=== PATIENT | female | born 1950 | race Caucasian/White ===

== ENCOUNTER → 2024-07-26 07:59 | Outpatient (REF) | payer MEDICARE, SELFPAY | LOC: MRI 07:59 | PROVIDERS: ATTENDING PHYSICIAN Student in an Organized Health Care Education/Training Program; REFERRING PHYSICIAN Pain Medicine Interventional Pain Medicine | DX: M54.31 Sciatica, right side (principal); R15.9 Full incontinence of feces | CPT/HCPCS: 72158; A9575 ==

== ENCOUNTER 2024-08-22 04:59 | Emergency (ER) | payer MEDICARE, SELFPAY ==
[2024-08-22 05:07] VITALS: BP 129/56
[2024-08-22] MEDS: NORCO 5/325 2 TABLET PO (07:44)
--- NOTE | 2024-08-22 08:22 | ED.GENMED ---
History of Present Illness
General
Chief Complaint: Musculo-Skeletal Complaint
Source: patient and spouse
Time Seen by Provider: 08/22/24 06:02
History of Present Illness
History of Present Illness:
74-year-old female who presents with persistent pain down her left leg. She also states this morning she had pain into her right buttocks. She has tingling in her feet. Patient has known history of spinal canal stenosis and has been seeing pain
management. She had no recent MRI. The patient admits that she has no real pain while laying in bed A lot of pain. Today pain came on while in bed and woke her up. She is scheduled to see a new pain management doctor on Saturday. She was
hoping for new procedure. The patient does state that the patient's provider was concerned about cauda equina syndrome recently and had an MRI performed that did not show cauda equina.
Past History
Past History
ED Past Medical History: Other (Parkinson's disease, cataracts, spinal canal stenosis, sciatica)
Social History
Tobacco: Non-smoker
Alcohol: None
Drug: None
Living: with family
Phy Exam
Physical Exam
Physical Exam:
CONSTITUTIONAL Patient alert and oriented to person, place and time. Well-appearing. Vital signs reviewed.
HEAD atraumatic, normocephalic.
EYES eyelids normal to inspection, Extraocular muscles intact, Conjunctiva normal, Sclera normal.
NECK normal range of motion, Trachea midline, no jugular venous distention.
RESPIRATORY CHEST No respiratory distress noted, Chest expansion equal
BACK normal inspection, no obvious deformities, negative straight leg raise bilaterally.
UPPER EXTREMITY range of motion normal, Motor strength normal, no cyanosis, no edema.
LOWER EXTREMITY range of motion normal, Motor strength normal, no cyanosis, no edema. Normal bilateral dorsalis pedis pulses
NEURO Speech normal, No focal motor deficits, Selina coma scale 15, Memory normal, Cranial Nerves intact to screening exam.
SKIN skin warm, dry, and normal in color.
Course
Orders/Labs/Results
Orders:
Orders
08/22/24 07:02
Hydrocodone 5/APAP 325 [Dixon 5/325] 2 tablet PO NOW STA
08/22/24 08:23
Prednisone [Deltasone] 50 mg PO NOW STA
Vital Signs
Initial and Last Documented VS:
Initial Vital Signs
Temp Pulse Resp BP Pulse Ox
98.8 F 94 26 129/56 96
08/22/24 05:07 08/22/24 05:07 08/22/24 05:07 08/22/24 05:07 08/22/24 05:07
Last Documented Vital Signs
Temp Pulse Resp BP Pulse Ox
98.8 F 79 16 129/79 96
08/22/24 05:07 08/22/24 08:30 08/22/24 08:30 08/22/24 08:30 08/22/24 08:30
MDM/Problems Addressed
MDM/Problems Addressed:
Spinal canal stenosis, sciatica
*Pulse Oximetry
Patient hypoxic: no
*Critical Care Note
Total Time (30-74mins, 75-104mins- exclusive of procedures): Not Applicable
Data Reviewed
Source: patient and spouse
Patient Management
Escalation/DeEscalation of care consider admission/obs:
74-year-old female who presents with persistent pain down her leg. She is scheduled see pain management again on Saturday. She was on oxycodone but only took 3 doses. Will trial hydrocodone to see if there is better improvement. I see no
evidence of cauda equina syndrome. The patient actually states she feels fine in bed. She does have more pain when she tries to walk. The patient has an open house for selling her house today and they do need to get home. Patient was given dose
of hydrocodone does not double. In addition, will trial course of steroids to see if that can be of any improvement for her.
ED Attending Note
-
Portions of this chart may have been created with voice recognition software.� Occasional wrong word or��sound alike� substitutions may have occurred due to the inherent limitations of voice recognition software.
Discharge Plan
Departure
Patient Disposition: Home (Routine Discharge)
Date of Disposition: 08/22/24
Time of Disposition: 08:23
Patient with high blood pressure during this ER visit?: No
Discharge Problem:
Spinal stenosis, Sciatica
Instructions: Sciatica (DC), Radiculopathy (DC)
Prescriptions:
New
hydrocodone-acetaminophen 5-325 mg tablet
2 tab PO Q6H PRN (Reason: Pain) Qty: 20 0RF
prednisone 10 mg Tablet
See Rx Instructions .ROUTE .COMPLEX Qty: 45 0RF
Rx Instructions:
Take By Mouth:
50 mg daily x3 days, 40 mg daily x3 days,
30 mg daily x3 days, 20 mg daily x3 days,
10 mg daily x3 days
Referrals:
Carol Redding MD [Family Provider] -
Activity Restrictions/Additional Instructions:
Please see pain management as planned on Saturday. Return immediately for bowel or bladder incontinence, motor weakness of the legs, fevers or any other concerns.
Interventions
Interventions:
*Risk Screen - Suicide Last Done: 08/22/24 05:07
*General Assessment Last Done: 08/22/24 05:12
*Neglect/Abuse Screening Last Done: 08/22/24 05:30
ED- Fall Risk Assessment Last Done: 08/22/24 05:36
*ED COVID-19 Vaccine History Last Done: 08/22/24 05:27
*Nursing Disposition Last Done: 08/22/24 08:57
ED-Musculoskeletal Assessment Last Done: 08/22/24 05:30
Discharge Date and Time
Print Language: ETHIOPIAN
[2024-08-22 08:30] VITALS: BP 129/79
[2024-08-22] MEDS: DELTASONE 50 MG PO (08:38)
== END 2024-08-22 10:07 | disposition home or self-care (01) ==
LOC: EMR 04:59
PROVIDERS: EMERGENCY PHYSICIAN Emergency Medicine; FAMILY PHYSICIAN Student in an Organized Health Care Education/Training Program
DX: M48.00 Spinal stenosis, site unspecified (principal); M54.42 Lumbago with sciatica, left side; R20.2 Paresthesia of skin; M79.605 Pain in left leg; G20.A1 Parkinson's disease without dyskinesia, without mention of fluctuations
CPT/HCPCS: 99283

== ENCOUNTER → 2024-09-01 13:36 | Outpatient (REF) | payer MEDICARE, SELFPAY | LOC: RAD 13:36 | PROVIDERS: ATTENDING PHYSICIAN Orthopaedic Surgery Orthopaedic Surgery of the Spine; FAMILY PHYSICIAN Student in an Organized Health Care Education/Training Program | DX: R29.818 Other symptoms and signs involving the nervous system (principal) | CPT/HCPCS: 72082; 72131 ==

== ENCOUNTER 2024-10-27 07:26 | Inpatient (IN) | payer MEDICARE, SELFPAY ==
[2024-10-27] VITALS (19 sets, daily range): BP systolic 76–176; BP diastolic 48–102; BMI 20.7; BMI 19.3
[2024-10-27] MEDS: DUONEB 3 ML INH (04:46)
[2024-10-27 04:52] LABS: % Basophils 0.5 % (0-2); % Eosinophils 1.6 % (0-6); % Immature Granulocytes 0.5 % (0-0.5); % Lymphocytes 8.3 % (20.5-51.1); % Monocytes 6.6 % (1.7-9.3); % Neutrophils 82.5 % (42.2-75.2); Absolute Basophils 0.1 10^3/uL (0-0.2); Absolute Eosinophils 0.2 10^3/uL (0-0.7); Absolute Immature Granulocytes 0.1 10^3/uL (0-0.05); Absolute Lymphocytes 0.9 10^3/uL (1.2-3.4); Absolute Monocytes 0.7 10^3/uL (0.1-0.6); Absolute Neutrophils 8.6 10^3/uL (1.4-6.5); Hematocrit 36.6 % (37.0-47.0); Hemoglobin 12.1 g/dL (12.0-16.0); Mean Corp Hgb Conc. 33.1 g/dL (33.0-37.0); Mean Corpuscular Volume 96.8 fL (81.0-99.0); Mean Platelet Volume 9.9 fL (7.4-10.4); Nucleated Red Blood Cells % 0 %; Platelet Count 303 10^3/uL (130-400); Red Blood Cell Count 3.78 10^6/uL (4.20-5.40); Red Cell Dist. Width 12.9 % (11.5-14.5); White Blood Cell Count 10.4 10^3/uL (4.8-10.8)
--- NOTE | 2024-10-27 04:56 | ED.GENMED ---
History of Present Illness
General
Chief Complaint: Breathing Problem
Source: patient, family and ambulance crew
Exam Limitations: none
Time Seen by Provider: 10/27/24 04:29
Nursing documentation reviewed up to this point in time: agreed with
History of Present Illness
History of Present Illness:
74-year-old female PAF on Eliquis, has been a rehab facility for about 6 weeks after lumbar spine surgery [facility], subacute onset of cough congestion lower extremity edema had Dopplers unsure of the results, came more short of breath
tonight, low pulse ox, no nausea or vomiting no fevers no hemoptysis has had lower extremity edema has PAF, scheduled to see Dr. Ferguson has not seen him yet
Past History
Past History
ED Past Medical History: Arrthythmia and Other (Parkinson's disease, cataracts, spinal canal stenosis, sciatica)
ED Past Surgical History: None
Social History
Tobacco: Non-smoker
Alcohol: None
Drug: None
Personal:
Living: with family
Employment: Retired
Review of Systems
Review of Systems
All Other Systems: Not applicable
Constitutional: Denies fever or fatigue
Respiratory: Reports cough and trouble breathing
Cardiac: Denies chest pain, palpitations or syncope
ABD/GI: Reports no symptoms
: Reports no symptoms
Musculoskeletal: Reports no symptoms
Skin: Reports no symptoms
Neurological: Reports no symptoms
Endocrine: Reports no symptoms
Hematologic/Lymphatic: Reports no symptoms
Psychiatric: Reports no symptoms
Phy Exam
Physical Exam
Physical Exam:
Physical Exam
General: 74-year-old female moderate respiratory distress cough
Neck: No jaundice
Heart: Tachycardic
Lungs: Diminished breath sounds with crackles wheeze
Abdomen: Not
Neuro: alert and oriented. no focal neurological deficits
Skin: no rash
Psychiatric: cooperative
Extremities: Pitting edema is present
Scores
Heart Failure Risk
Heart Failure Risk Score: Yes
History of Stroke or TIA: No
History of intubation for respiratory distress: No
Heart rate on ED arrival >/= 110: Yes
SaO2 <90% on arrival on room air: Yes
HR >/=110 during 3min walk test (or too ill to perform test): Yes
ECG has acute ischemic changes: No
Urea >/=12mmol/L (BUN 33.6mg/dL): No
Serum CO2>/=35mmol/L: No
Troponin I or T elevated to VA Level (0.4mg/dL): No
NT-proBNP >/=5,000ng/L (5,000pg/ml): No
HF Risk Score: 3
Admission Status: HIGH RISK 15.9% Consider SNF treatment or admission to hospital
Course
Orders/Labs/Results
Orders:
Orders
10/27/24 04:37
Ipratropium/Albuterol Sulfate [Duoneb] 3 ml .ROUTE .STK-MED ONE
10/27/24 04:38
Electrocardiogram (*1) Stat
Reason for Study: Other
Other Reason for Exam: pneumonia
Cardiac Monitoring- Treatment ONCE
EKG- Treatment ONCE
Ipratropium/Albuterol Sulfate [Duoneb] 3 ml INH R NOW STA
CR Chest Portable - 1 View Urgent
Comment:
Reason For Exam: sob
Reason Study Needs to be Portable: Unable to Transport
10/27/24 04:43
Complete Blood Count/With Diff Urgent
NT-proBNP Urgent
Troponin I Urgent
10/27/24 04:46
Arterial Blood Gas Urgent
%Oxygen/Room Air: 2
10/27/24 05:00
Furosemide [Lasix] 60 mg IV NOW STA
10/27/24 05:02
Morphine Sulfate 2 mg IV NOW STA
10/27/24 05:15
Diltiazem 125 mg/125 ml Nss [Cardizem] 125 mg in 125 ml IV PER PROTOCOL
Initial dose in mg/hr, then titrate:: 5
Titrate to keep:: Heart rate 80-100 bpm
Titrate by mg/hr:: 5 mg/hr
Frequency of titrations (minutes):: 15
Maximum dose in mg/hr:: 15
10/27/24 05:17
Diltiazem 125 mg/125 ml Nss [Cardizem] 125 mg in 125 ml IV PER PROTOCOL
Initial dose in mg/hr, then titrate:: 5
Titrate to keep:: Heart rate 80-100 bpm
Titrate by mg/hr:: 5 mg/hr
Frequency of titrations (minutes):: 15
Maximum dose in mg/hr:: 15
10/27/24 05:18
Diltiazem 125 mg/125 ml Nss [Cardizem] 125 mg in 125 ml IV NOW
Currently infusing. Continue current dose and titrate:: Yes
Titrate to keep:: Heart rate 80-100 bpm
Titrate by mg/hr:: 5 mg/hr
Frequency of titrations (minutes):: 15
Maximum dose in mg/hr:: 15
10/27/24 05:21
Comprehensive Metabolic Panel Urgent
Abnormal Lab Results
10/27/24 10/27/24
04:43 04:46
RBC 3.78 L 10^6/uL
(4.20-5.40)
Hct 36.6 L %
(37.0-47.0)
MCH 32.0 H pg
(27.0-31.0)
Abs Immat Gran (auto) 0.1 H 10^3/uL
(0-0.05)
Absolute Neuts (auto) 8.6 H 10^3/uL
(1.4-6.5)
Absolute Lymphs (auto) 0.9 L 10^3/uL
(1.2-3.4)
Absolute Monos (auto) 0.7 H 10^3/uL
(0.1-0.6)
Neutrophils % 82.5 H %
(42.2-75.2)
Lymphocytes % 8.3 L %
(20.5-51.1)
pCO2 38 H mmHg
(32-35)
ABG O2 Sat (Measured) 98.8 H %
(94-98)
10/27/24 04:43
Vital Signs
Initial and Last Documented VS:
Initial Vital Signs
Temp Pulse Resp BP Pulse Ox
98.0 F 128 30 166/99 94
10/27/24 04:33 10/27/24 04:33 10/27/24 04:33 10/27/24 04:33 10/27/24 04:33
Last Documented Vital Signs
Temp Pulse Resp BP Pulse Ox
98.0 F 147 28 176/92 97
10/27/24 04:33 10/27/24 05:22 10/27/24 04:45 10/27/24 05:22 10/27/24 04:51
MDM/Problems Addressed
Differential Diagnosis Includes:
Bronchitis pneumonia heart failure less likely PE or pneumothorax
MDM/Problems Addressed:
Cough shortness of breath upon
Chronic conditions affecting care:
PAF lumbar radiculopathy lumbar surgery
Acute Exacerbation and/or Progression of Chronic Illness:
PAF lumbar surgery
*Radiology
Radiology exam reviewed: preliminary read by ED provider
*Pulse Oximetry
Patient hypoxic: yes
*EKG
Interpreted by ED Provider?: Yes
Interpretation: abnormal
Comparison EKG: no comparison EKG present
Heart Rate: 128
Rate: tachycardiac
Rhythm: a-fib
Ischemia: non-specific ST changes
*Crew Boss Interpretation
Rate: tachycardiac
Interpretation: abnormal
Heart Rate: 138
Rhythm: sinus and atrial flutter
*Critical Care Note
Total Time (30-74mins, 75-104mins- exclusive of procedures): 30
Data Reviewed
Source: patient and spouse
Prescriptions/Medications Considered But Not Given:
Unfractionated
Further Testing Considered But Not Given:
CT of the chest
Update Note
Update Note:
Update, chest x-ray noted looks like heart failure effusions, proBNP noted, will diurese start on rate control supplemental oxygen ABG will require admission
CRITICAL CARE STATEMENT: A total of 30minutes of critical care time was provided for this patient. This includes management of unstable vital signs, evaluation of the patient at bedside, reviewing the patient's pertinent medical records discussion
with EMS providers and patient's family in addition to discussion with consultants, review of old EKGs and review of pertinent medical records. This time with separate from time utilized to perform the aforementioned documented procedures
ED Attending Note
-
Portions of this chart may have been created with voice recognition software.� Occasional wrong word or��sound alike� substitutions may have occurred due to the inherent limitations of voice recognition software.
Discharge Plan
Departure
Patient Disposition: Admit
Date of Disposition: 10/27/24
Time of Disposition: 05:47
Admit to: Telemetry
Presentation/result/management discussed w/ accepting MD/DO: Hospitalist
Patient with high blood pressure during this ER visit?: Yes
Condition: Fair
Covid-19: Not Applicable
Discharge Problem:
Atrial flutter with rapid ventricular response, Hypoxia, Congestive heart failure (CHF)
Prescriptions:
No Action
hydrocodone-acetaminophen 5-325 mg tablet
2 tab PO Q6H PRN (Reason: Pain) Qty: 20 0RF
prednisone 10 mg Tablet
See Rx Instructions .ROUTE .COMPLEX Qty: 45 0RF
Rx Instructions:
Take By Mouth:
50 mg daily x3 days, 40 mg daily x3 days,
30 mg daily x3 days, 20 mg daily x3 days,
10 mg daily x3 days
Referrals:
Carol Redding MD [Family Provider] -
Interventions
Interventions:
*Risk Screen - Suicide Last Done: 10/27/24 04:33
*General Assessment Last Done: 10/27/24 04:33
*Neglect/Abuse Screening Last Done: 10/27/24 04:33
ED- Fall Risk Assessment Last Done: 10/27/24 04:51
*ED COVID-19 Vaccine History Last Done: 10/27/24 04:50
ED- Cardiac Assessment Last Done: 10/27/24 04:51
ED- Pulmonary Assessment Last Done: 10/27/24 04:51
Discharge Date and Time
Print Language: TURKISH
[2024-10-27 05:00] LABS: B.E. 0.9 mmol/L; HCO3 25.2 mmol/L (21-28); O2 Saturation % 98.8 % (94-98); PCO2 38 mmHg (32-35); PO2 89 mmHg (83-108); pH 7.43 (7.35-7.45)
[2024-10-27 05:02] LABS: O2 Therapy 2
[2024-10-27] MEDS: MORPHINE SULFATE 2 MG IV (05:20)
[2024-10-27] MEDS: LASIX 60 MG IV (05:22)
[2024-10-27 05:24] LABS: NT-proBNP 2230 pg/ml; Troponin I < 0.012 ng/ml
[2024-10-27] MEDS: CARDIZEM 125 IV ×2 (05:24→14:59)
[2024-10-27 07:00] LABS: ALT (SGPT) 13 U/L (0-35); AST (SGOT) 36 U/L (14-36); Albumin 3.5 g/dl (3.5-5.0); Alkaline Phosphatase 117 U/L (38-126); Blood Urea Nitrogen 17 mg/dl (7-17); Calcium 8.7 mg/dl (8.4-10.2); Carbon Dioxide 27 mmol/L (22-30); Chloride 102 mmol/L (98-107); Estimated Creatinine Clearance 66 ml/min; Glucose 129 mg/dl (70-99); Potassium 3.6 mmol/L (3.5-5.1); Sodium 134 mmol/L (135-145); Total Bilirubin 0.5 mg/dl (0.2-1.3); Total Protein 6.2 g/dl (6.3-8.2); eGFR > 60.00
--- NOTE | 2024-10-27 07:15 | HPS.HSE ---
Family Physician
-
Family Physician: Carol Redding MD
Chief Complaint
-
Shortness of breath and chest tightness
History of Present Illness
This is a 74-year-old female with past medical history of Parkinson's disease, A-fib and spinal stenosis status post recent spine surgery who presents to the emergency department with shortness of breath and tachycardia.
Patient and spouse report that the symptoms began after discharge from rehab. She reported that she has had swelling of her lower extremities bilaterally at rehab. However she had no shortness of breath or any other symptoms until arrival at home.
About 2 days ago she started having shortness of breath and a nonproductive cough. She was wheezing and spouse noted increased work of breathing. She had some chest tightness. He started noticing that she had severe dyspnea when laying down and
was propping her up. He was monitoring heart rate in order to give her on metoprolol for atrial fibrillation and noticed that her heart rate was in the 150s. Symptoms became very severe today so she decided to bring her to the emergency
department. She denies feeling dizzy or lightheaded. She denies any nausea or vomiting. She has not had any fevers or chills. They denied any recent sick contacts.
Patient reported that over 3 weeks ago she had preoperative evaluation for a spinal surgery. At that time she was found to have asymptomatic atrial fibrillation on EKG and was started on metoprolol and apixaban. She had an echocardiogram which
showed moderate to severe mitral regurg. She was pending follow-up with cardiology in about 1 month. She has no prior history of CHF. She has no prior history of CAD. She has no stents.
In the emergency department she was afebrile, hypertensive to 170 systolic. She was tachycardic to 140s. ECG shows atrial flutter at rate of 147. No acute ischemic changes. Troponin was normal at 0.012. BNP was elevated at 2230. CBC was
unremarkable. Chemistries were also unremarkable. LFTs within normal limits. Chest x-ray shows bilateral infiltrates and cephalization c/w flash pulmonary edema.
Medical History
Past Medical History
Past Medical History: Reports Arrhythmia (Atrial fibrillation) and Other
Additional Past Medical History:
Parkinson's disease
Spinal stenosis
Past Surgical History: Reports Orthopedic (Lumbar spine surgery with a kendy and placement)
Social History
Tobacco: Non-smoker
Alcohol: None
Drug: None
Personal:
Living: With Family
Employment: Retired
Family History
Family History: Not pertinent
Allergies / Home Medications
Allergies reflects when Allergies were last updated in [facility].
Home Medications with original date entered in [facility]
Allergy/Medication List:
Allergies
Allergy/AdvReac Type Severity Reaction Status Date / Time
No Known Allergies Allergy Verified 10/27/24 04:33
Home Medications
acetaminophen 325 mg tablet 650 mg PO Q4H PRN mild pain 10/27/24
apixaban 5 mg tablet (Eliquis) 5 mg PO BID 10/27/24
carbidopa 25 mg-levodopa 100 mg tablet 2 tab PO QID 10/27/24
carbidopa ER 25 mg-levodopa 100 mg tablet,extended release 1 tab PO HS 10/27/24
cyclosporine 0.05 % eye drops in a dropperette (Restasis) 1 drp ophthalmic (eye) Q12H 10/27/24
melatonin 10 mg tablet 10 mg PO HS PRN sleep 10/27/24
metoprolol succinate 25 mg PO DAILY 10/27/24
multivitamin 1 tab PO DAILY 10/27/24
polyethylene glycol 3350 17 gram/dose oral powder (Miralax) 4 g PO DAILY PRN constipation 10/27/24
rasagiline 1 mg tablet (Azilect) 1 mg PO 4-8XD 10/27/24
turmeric 400 mg capsule 400 mg PO BID 10/27/24
vitamin B complex 1 tab PO DAILY 10/27/24
zinc 100 mg tablet 220 mg PO DAILY 10/27/24
Review of Systems
-
History Source: Patient
Constitutional: Reports No Symptoms
EENT: Reports No Symptoms
Respiratory: Reports Cough and Trouble Breathing
Cardiac: Reports Chest Pain
Abdomen/GI: Reports No Symptoms
: Reports No Symptoms
Musculoskeletal: Reports Edema
Skin: Reports No Symptoms
Neurological: Reports No Symptoms
Endocrine: Reports No Symptoms
Hematologic/Lymphatic: Reports No Symptoms
Psych: Reports No Symptoms
Physical Exam
Vital Signs
Vital Signs
Temp Pulse Resp BP Pulse Ox
98.0 F 147 28 176/92 97
10/27/24 04:33 10/27/24 05:22 10/27/24 04:45 10/27/24 05:22 10/27/24 04:51
Physical Exam
General: Respiratory Distress
HEENT: NormoCephalic, Anicteric, Moist mucous membranes and Atraumatic
Respiratory: Crackles and Accessory Resp Muscle Use
Cardiac: S1/S2, Irregular Rhythm and Tachycardia
Breast: Deferred by me
GI: Soft, Non Tender, Non Distended and Normal Bowel Sounds
Rectal: Deferred by Provider
Genito-urinary: Deferred by me
Musculoskeletal: No Clubbing, No Cyanosis, Edema, Left Lower Extremity and Edema, Right Lower Extremity
Skin: Warm
Neuro: AO x 3
Hematologic/Lymphatic: No Lymphadenopathy
Psych: Calm
Laboratory Results
-
10/27/24 04:43
10/27/24 06:25
Laboratory Results
pH 7.43 (7.35-7.45) 10/27/24 04:46
pCO2 38 mmHg (32-35) H 10/27/24 04:46
pO2 89 mmHg (83-108) 10/27/24 04:46
HCO3 25.2 mmol/L (21-28) 10/27/24 04:46
Total Bilirubin 0.5 mg/dl (0.2-1.3) 10/27/24 06:25
AST 36 U/L (14-36) 10/27/24 06:25
ALT 13 U/L (0-35) 10/27/24 06:25
Alkaline Phosphatase 117 U/L (38-126) 10/27/24 06:25
Troponin I < 0.012 ng/ml 10/27/24 04:43
Data Reviewed
-
Diagnostic Radiology: Image Personally Visualized and interpreted
Medical Tests (Nuc Med, Echo, EKG etc): Image Personally Visualized and interpreted
Lab Data: Labs Reviewed by me
Old Records: Reviewed
Impression/Plan
-
IMPRESSION:
Patient with history of atrial fibrillation recently diagnosis during preoperative evaluation for spinal surgery presents to the emergency department with approximately 1 to 2 days of increasing dyspnea on exertion then rapid development of
shortness of breath and orthopnea with tachycardia to the 150s at home, brought to ED with oxygen requirement of 2 to 4 L, pulmonary edema on x-ray, crackles on exam with about 1+ bilateral lower extremity edema. And known to have mitral
regurgitation on recent outside echocardiogram. No signs of acute infectious process. Suspect A-fib RVR in the setting of mitral regurg resulting in flash pulmonary edema. Unknown if underlying CHF however was not placed on lasix at rehab though
she had complained of bilateral leg swelling.
PLAN:
1. CHF - New onset CHF suspected in the setting of aflutter/fib RVR. Known mitral insufficiency.
- admit to ivu
- rate control as below
- start on diuretics 60mg iv in ED, will continue 40 iv q 12
- echocardiogram
- daily weights and i/os for now
- cardiology consultation
2. Rapid atrial flutter -
- diltiazem gtt to maintain rate < 100
- continue patients metoprolol, adjustment per cardiology
- anticoagulation on apixaban
3. Mitral regurgitation
- reported to be mod to severe, will repeat echo here
4. spinal stenosis s/p back surgery
- pain well controlled. acetaminophen prn
5. Parkinson
- continue sinamet per home med
DVT PPX - on apixaban
Code status - full code
--- NOTE | 2024-10-27 08:01 | W.PN.HOSP.TC ---
Today's Communication/Plan
-
see A/P
Assessment / Plan
Assessment / Plan
HPI: 74-year-old female with past medical history of Parkinson's disease, A-fib and spinal stenosis status post recent spine surgery; who presented to the emergency department with shortness of breath and tachycardia, symptoms began after discharge
from rehab.
She reported that she has had swelling of her lower extremities bilaterally at rehab.
She was wheezing and spouse noted increased work of breathing. She had some chest tightness. He started noticing that she had severe dyspnea when laying down and was propping her up. He was monitoring heart rate in order to give her on metoprolol
for atrial fibrillation and noticed that her heart rate was in the 150s. Symptoms became very severe so she decided to bring her to the emergency department.
Patient reported that over 3 weeks ago she had preoperative evaluation for a spinal surgery. At that time she was found to have asymptomatic atrial fibrillation on EKG and was started on metoprolol and apixaban. She had an echocardiogram which
showed moderate to severe mitral regurg. She was pending follow-up with cardiology.
A/P:
# New acute onset CHF (unknown type), suspected in setting of aflutter/fib RVR.
# Mitral regurgitation, reported to be mod to severe
rate control as below
s/p IV lasix 60mg in ED, continue 40 IV BID, follow daily weights and i/os
Check echocardiogram
Cardiology consultation
# Atrial flutter with RVR
Diltiazem gtt to maintain rate < 100
continue [employer] metoprolol, adjustment per cardiology
anticoagulation with apixaban
# spinal stenosis s/p back surgery
pain well controlled. acetaminophen prn
PT OT eval when able
# Parkinson
continue sinamet per home med
DVT PPX - on apixaban
Code status - full code
Anticipated Discharge: > 48 hours
Subjective/Interval History
-
Date of Service: October 27, 2024
Objective Data
-
Labs:
Laboratory Results
10/27/24 10/27/24 10/27/24
04:43 04:46 05:31
WBC 10.4
Hgb 12.1
Hct 36.6 L
Plt Count 303
HCO3 25.2
Sodium Cancelled Cancelled
Potassium Cancelled Cancelled
Chloride Cancelled Cancelled
Carbon Dioxide Cancelled Cancelled
BUN Cancelled Cancelled
Creatinine Cancelled Cancelled
Glucose Cancelled Cancelled
Calcium Cancelled Cancelled
Total Bilirubin Cancelled Cancelled
AST Cancelled Cancelled
ALT Cancelled Cancelled
Alkaline Phosphatase Cancelled Cancelled
10/27/24
06:25
WBC
Hgb
Hct
Plt Count
HCO3
Sodium 134 L
Potassium 3.6
Chloride 102
Carbon Dioxide 27
BUN 17
Creatinine 0.5 L
Glucose 129 H
Calcium 8.7
Total Bilirubin 0.5
AST 36
ALT 13
Alkaline Phosphatase 117
Vital Signs:
Vital Signs
Temp Pulse Resp BP Pulse Ox
36.7 C 113 29 120/64 94
10/27/24 04:33 10/27/24 07:00 10/27/24 07:00 10/27/24 07:00 10/27/24 07:00
Review of Systems
-
Respiratory: Reports Trouble Breathing
Physical Exam
-
General: Well Developed, Well Nourished, Comfortable, Respiratory Distress and Conversant
HEENT: Normocephalic, Atraumatic, Nose Appears Normal, Ears Appear Normal and Oxygen (3.5L NC)
Respiratory: Crackles and Non Labored Respirations; Negative Accessory Resp Muscle Use
Cardiac: S1/S2 and Irregular Rhythm
GI: Soft, Nontender, Nondistended and Normal Bowel Sounds
Skin: Warm and Dry
Neuro: Awake, Alert, Oriented and AO x 3
Psych: Calm and Intact Judgement/Insight
Data Reviewed
-
Labs: Labs Reviewed by me
[2024-10-27] MEDS: SINEMET 25-100 2 TABLET PO (08:34)
--- NOTE | 2024-10-27 09:03 | CON.CAR ---
Addendum entered and electronically signed by Bandar Latif MD 10/27/24 10:42:
I saw and examined the patient.
The Probation Counselor's note was reviewed and I agree with the note.
Comment: Briefly, 74-year-old woman with recently identified atrial fibrillation and moderate to severe mitral regurgitation who presents in acute decompensated heart failure found to have flutter with rapid ventricular response
Patient has had worsening dyspnea on exertion as well as lower extremity edema over the last few weeks. On admission she was found to be hypoxic requiring supplemental oxygen via nasal cannula. proBNP elevated over 1999 and chest x-ray with
pulmonary edema and bilateral pleural effusions. Recent transthoracic echocardiogram at [facility] with preserved left-ventricular systolic function and moderate to severe mitral regurgitation.
Physical exam consistent with decompensated heart failure�elevated JVP, lungs with crackles throughout and mild lower extremity edema. Still requiring supplemental oxygen today.
Agree with continuing IV diuresis twice daily�explained she will likely need to go home on maintenance diuretic
Follow renal function/electrolytes and daily weights
In regards to her atrial flutter, currently maintained on diltiazem drip, wean as able
Continue metoprolol
Add amiodarone
Continue Eliquis for cardioembolic prophylaxis
Tentative plan for OMAR/direct-current cardioversion when more euvolemic
Discussed that OMAR images would allow us to better understand mechanism of her mitral regurgitation and that options include medical management versus MitraClip versus mitral valve repair/replacement
Rest per Veronica Tidwell
Original Note:
Consultation
Consultation Request
Date/Time Consultation Performed: 10/27/24
Requesting Provider: Dr. Giraldo
Performing Provider: Veronica Tidwell PA-C for Dr. Weaver
Reason for Consultation: aflutter, CHF
Medical History
-
Chief Complaint: tachycardia
History of Present Illness:
Patient is a 74 yo F with PMH of Parkinson's disease who underwent lumbar spine surgery 09/28/24 @[facility] - Dr. Lynne. As part of preop evaluation, underwent EKG which showed afib of which she was asymptomatic. She was started on metoprolol and
eliquis. Had echo which showed preserved EF and mod to severe MR. She denies being told she had history of known murmur. She was scheduled to see Dr. Wiggins for evaluation as new patient 11/24/24. She was discharged from rehab 10.22.24 and since has
noted worsening SOB, LE edema, orthopnea, palpitations. Noted to be in aflutter with RVR on arrival. proBNP 2230. CXR with pulm edema and B/L pleural effusions. trop negative. Cardiology consulted for evaluation. She reports she was seen by spine
surgeon post op 10/22/24 and no issues from back standpoint.
PMH:
Atrial fibrillation, diagnosed 09/2024
Anticoagulation with Eliquis
Moderate to severe mitral regurgitation by echo 09/23/2024
[facility]
Parkinson's disease
Past Medical History
Past Medical History: Other (in HPI)
Social History
Tobacco: Non-Smoker
Alcohol: None
Personal:
Living: With Family
Family History
Family History: CAD (in mother) and Other (Parkinson's in father)
Allergies / Home Medications
Allergy/AdvReac Type Severity Reaction Status Date / Time
No Known Allergies Allergy Verified 10/27/24 04:33
�Medication �Instructions �Recorded �Confirmed �Type
acetaminophen 325 mg tablet 650 mg PO Q4HPRN PRN mild pain 10/27/24 10/27/24 History
apixaban 5 mg tablet (Eliquis) 5 mg PO BID Blood Clot 10/27/24 10/27/24 History
Prevention/Tx
carbidopa 25 mg-levodopa 100 mg 1 tab PO 5/D parkinson's disease 10/27/24 10/27/24 History
tablet
carbidopa ER 25 mg-levodopa 100 mg 1 tab PO HS parkinson's disease 10/27/24 10/27/24 History
tablet,extended release
cyclosporine 0.05 % eye drops in a 1 drp BOTH EYES Q12H dry eyes 10/27/24 10/27/24 History
dropperette (Restasis)
melatonin 10 mg tablet 10 mg PO HS sleep 10/27/24 10/27/24 History
metoprolol succinate 25 mg 25 mg PO DAILYPRN PRN AFib 10/27/24 10/27/24 History
tablet,extended release 24 hr
(Toprol XL)
multivitamin 1 tab PO DAILY Supplement 10/27/24 10/27/24 History
naproxen sodium 220 mg tablet 220 mg PO BIDPRN PRN mild pain 10/27/24 10/27/24 History
(Aleve)
polyethylene glycol 3350 17 17 g PO DAILYPRN PRN constipation 10/27/24 10/27/24 History
gram/dose oral powder (Miralax)
rasagiline 1 mg tablet (Azilect) 1 mg PO DAILY parkinson's disease 10/27/24 10/27/24 History
turmeric 400 mg capsule 400 mg PO BID Supplement 10/27/24 10/27/24 History
vitamin B complex 1 tab PO DAILY Supplement 10/27/24 10/27/24 History
zinc 100 mg tablet 220 mg PO DAILY Supplement 10/27/24 10/27/24 History
Review of Systems
-
History Source: Patient and Family
All other systems: Negative unless noted
Physical Exam
Vital Signs
Temp Pulse Resp BP Pulse Ox
98.0 F 95 26 111/70 93
10/27/24 04:33 10/27/24 08:00 10/27/24 08:00 10/27/24 08:00 10/27/24 08:00
Lab Results
10/27/24 04:43
10/27/24 06:25
Troponin I < 0.012 ng/ml 10/27/24 04:43
Rso-W-Vganwzdhbvm Pept 2230 pg/ml 10/27/24 04:43
Physical Exam
General: Other (tachypneic. on supp O2)
HEENT: Normocephalic, Anicteric and Moist Mucous Membranes
Respiratory: Crackles
Cardiac: S1/S2, Irregular Rhythm and Murmur
GI: Soft, Non Tender, Non Distended and Normal Bowel Sounds
Musculoskeletal: No Clubbing, No Cyanosis and Edema (2+ of B/L LE)
Skin: Warm and Dry
Neuro: AO x 3
Impression / Plan
-
Primary Supervisor Data Processing: scheduled to see Dr. Wiggins as new patient 11/24/24
Assessment:
Presentation with SOB, LE, orthopnea, palpitations
Acute HFpEF, small to mod B/L pleural effusions by CXR 10/26/24
Negative troponin
Aflutter with RVR
Atrial fibrillation, diagnosed 09/2024
Anticoagulation with Eliquis
Moderate to severe mitral regurgitation by echo 09/23/2024
[facility]
Parkinson's disease
ECHO at [facility] 09/23/24: EF 64%, mildly dilated left atrium, moderate to severe MR, mild TR
Plan:
-Patient with recent diagnosis new atrial fibrillation found in setting of preop for lumbar spine surgery completed 09/28/2024 at [facility] now presents with recurrence of atrial arrhythmia and acute CHF. Had outpatient echo which showed moderate to
severe MR, also new diagnosis.
-Reviewed results of echocardiogram dated 09/23/2024 and cardiology office note from Dr. Clyde Mckinney 09/23/24
-Diuresis with IV Lasix. Creatinine stable at 0.5. Was not on diuretic prior to admission
-Suspect CHF secondary to arrhythmia as well as known valvular disease
-Wean supplemental oxygen as able
-Currently on IV Cardizem at 15 with heart rates in A-fib in the 80s to 90s. On Toprol 25 mg p.o. daily as needed as outpatient. Would place on standing dose Toprol 25 mg daily. Would also consider addition of amiodarone as unlikely to maintain
SR with rate control alone in setting of MR
-continue eliquis
-Once improved from a volume standpoint, would plan for OMAR/cardioversion to both look at mitral valve as well as to restore sinus rhythm
-Based on results of OMAR, would consider evaluation for surgical mitral valve intervention versus MitraClip
-PT OT
-Of note, patient's tells me they are planning to move to [place], [place] to be closer to their son. This has been pushed back already. We discussed likely benefit of staying here until patient's current medical issues are addressed
and they are in full agreement with this. they were planning to follow with Dr. Feliciano Ferguson, scheduled 11/24/24
-Discussed with nursing. Discussed with patient and at bedside
Data Reviewed
-
EKG: Tracing Personally Visualized and interpreted
Radiology: Report Reviewed by me
Medical Tests (Nuc Med, Echo etc): Report Reviewed by me
Labs: Labs Reviewed by me
Old Records: Reviewed
[2024-10-27] MEDS: ELIQUIS 5 MG PO ×2 (11:14→20:59)
[2024-10-27] MEDS: TOPROL XL 25 MG PO (11:14)
[2024-10-27] MEDS: RASAGILINE MESYLATE 1 MG PO (11:23)
[2024-10-27] MEDS: SINEMET 25-100 1 TABLET PO ×3 (13:23→20:59)
--- NOTE | 2024-10-27 15:42 | PTCARENOTE ---
Pt tachypneic w/ complaints of sob. Lungs CTA and very diminished, posteriorly. Pulse ox 94% on 4 liters of oxygen. Lasix not given due to BP 85/57. PA notified. Will monitor.
--- NOTE | 2024-10-27 16:01 | W.PN.UPDATE ---
Update Note
Progress Note Update
CTSP as patient noted by nursing to be tachypneic after eating. now feels improved. O2 sat 97% on 4 L NC. BP was 85/57, repeated while I was in room and improved to 103/59. will plan to give 20mg IV lasix this afternoon and follow BPs. IV cardizem
gtt turned off. remains in aflutter with HRs in 70s on review of tele. continue toprol with hold parameters as well as amiodarone 200mg TID. repeat EKG in AM. if remains with hypotension with diuresis attempts, would consider eval for PE in setting
of recent surgery. no calf pain and LE edema at present.
--- NOTE | 2024-10-27 16:10 | CM ---
Reviewed chart. Met with Mrs. Marshall and daughter to review discharge plans. Mrs. Marshall was sleeping. Daughter states prior to admission she resides with her spouse in a two story home with one step to enter. Daughter states she resides in a [address] [facility] [place]. They have been there since 2013. Daughter states Mrs. Marshall has back surgery recently and was discharged from [facility] on Saturday. Daughter was not sure if VNA Services were set up. Daughter states prior to admission
Mrs. Marshall was ambulating with a walker. She has a walker at home. Will need to see her current functional level to see if she will have any skilled care needs. Medical work-up in progress. The discharge plan is to return home with her spouse
and VNA Services versus SNF/Rehab. if indicated when medically stable.
[2024-10-27] MEDS: LASIX 20 MG IV (16:45)
[2024-10-27] MEDS: KLOR-CON 40 MEQ PO (16:45)
[2024-10-27] MEDS: THERAGRAN 1 TABLET PO (16:45)
[2024-10-27] MEDS: PACERONE 200 MG PO ×2 (16:45→22:58)
[2024-10-27] MEDS: RESTASIS 0.05% OPHTHALMIC EMULSION OPHTH ×2 (16:46→21:03)
[2024-10-27] MEDS: SINEMET CR 25-100 (EXTENDED RELEASE) 1 TABLET PO (22:58)
[2024-10-28] VITALS (12 sets, daily range): BP systolic 75–153; BP diastolic 47–99; PULSE 107–116; O2SAT 96; BMI 17.7
[2024-10-28 05:13] LABS: Magnesium 1.9 mg/dl (1.6-2.3)
[2024-10-28] MEDS: SINEMET 25-100 1 TABLET PO ×5 (06:27→20:22)
--- NOTE | 2024-10-28 08:00 | PTCARENOTE ---
Assumed care of pt from prev nsg shift; AAOx3 w/no c/o CP, pt reports feeling 'very SOB'. Pt's SpO2 90% on 3L O2 via NC. Pt appears very anxious at this time. Pt's O2 increased to 4L via NC. Pt repositioned for breathing comfort & pt taught pursed
lip breathing. Pt's O2 sats came up to 94%. Pt's ordered IV Lasix administered. Pt reported feeling 'somewhat better'. Pt w/VS stable w/HR in the 90's at rest & in the 100's-110's w/activity. Pt is Afib on telemetry monitoring. BP stable at 106/79
this AM. Pt advised of plan of care. Pt w/call cam within reach & no addtl needs at this time.
[2024-10-28] MEDS: RASAGILINE MESYLATE 1 MG PO (08:11)
[2024-10-28] MEDS: LASIX 40 MG IV (08:11)
[2024-10-28] MEDS: THERAGRAN 1 TABLET PO (08:13)
[2024-10-28] MEDS: TOPROL XL 25 MG PO (08:13)
[2024-10-28] MEDS: ELIQUIS 5 MG PO ×2 (08:13→20:22)
[2024-10-28] MEDS: PACERONE 200 MG PO ×3 (08:13→22:55)
--- NOTE | 2024-10-28 08:52 | W.PN.HOSP.TC ---
Addendum entered and electronically signed by Moira Han MD 10/28/24 15:23:
# Underweight
Original Note:
Today's Communication/Plan
-
see A/P
Assessment / Plan
Assessment / Plan
HPI: 74-year-old female with past medical history of Parkinson's disease, A-fib and spinal stenosis status post recent spine surgery; who presented to the emergency department with shortness of breath and tachycardia, symptoms began after discharge
from rehab.
She reported that she has had swelling of her lower extremities bilaterally at rehab.
She was wheezing and spouse noted increased work of breathing. She had some chest tightness. He started noticing that she had severe dyspnea when laying down and was propping her up. He was monitoring heart rate in order to give her on metoprolol
for atrial fibrillation and noticed that her heart rate was in the 150s. Symptoms became very severe so she decided to bring her to the emergency department.
Patient reported that over 3 weeks ago she had preoperative evaluation for a spinal surgery. At that time she was found to have asymptomatic atrial fibrillation on EKG and was started on metoprolol and apixaban. She had an echocardiogram which
showed moderate to severe mitral regurg. She was pending follow-up with cardiology.
A/P:
# New acute onset CHF (unknown type), suspect 2/2 aflutter/fib RVR.
# Mitral regurgitation, reported to be mod to severe
rate control as below
s/p IV lasix 60mg in ED, now on IV Lasix 40 mg daily, follow daily weights and i/os
Follow echocardiogram report
Cardiology on board, planning for tentative OMAR with DCCV when more euvolemic
# Acute hypoxic resp insufficiency 2/2 to above
Placed on 4L NC, wean as tolerated, pt is not on home O2
# Atrial flutter with RVR
Diltiazem gtt -> Amiodarone 200 mg TID
Cont DESIGN QUALITY ENGINEER Toprol 25 mg daily
anticoagulation with apixaban
print developer automatic on board
# spinal stenosis s/p back surgery
pain well controlled. acetaminophen prn
PT OT eval when able
# Parkinson
continue sinamet per home med
DVT PPX - on apixaban
Code status - full code
DW RN
updated on the phone
Anticipated Discharge: > 48 hours
Subjective/Interval History
-
Date of Service: October 28, 2024
Objective Data
-
Labs:
Laboratory Results
10/28/24
07:50
Sodium Pending
Potassium Pending
Chloride Pending
Carbon Dioxide Pending
BUN Pending
Creatinine Pending
Glucose Pending
Calcium Pending
Vital Signs:
Vital Signs
Temp Pulse Resp BP Pulse Ox
36.6 C 101 20 106/79 95
10/28/24 07:44 10/28/24 07:47 10/28/24 07:44 10/28/24 07:47 10/28/24 07:44
I&O
10/27/24 10/28/24 10/29/24
06:59 06:59 06:59
Intake Total 240 / 240
Output Total 600 / 600
Balance -360 / -360
Review of Systems
-
Respiratory: Reports Trouble Breathing
Physical Exam
-
General: Well Developed, Well Nourished, Comfortable, Respiratory Distress and Conversant
HEENT: Normocephalic, Atraumatic, Nose Appears Normal, Ears Appear Normal and Oxygen (4L NC)
Respiratory: Crackles and Non Labored Respirations; Negative Accessory Resp Muscle Use
Cardiac: S1/S2 and Irregular Rhythm
GI: Soft, Nontender, Nondistended and Normal Bowel Sounds
Skin: Warm and Dry
Neuro: Awake, Alert, Oriented and AO x 3
Psych: Calm and Intact Judgement/Insight
Data Reviewed
-
Labs: Labs Reviewed by me
--- NOTE | 2024-10-28 09:15 | W.PN.CARDCBS ---
Addendum entered and electronically signed by Bandar Latif MD 10/28/24 13:59:
I saw and examined the patient.
The Lacquerer's note was reviewed and I agree with the note.
Comment: Briefly, 74-year-old woman with recently identified atrial fibrillation and moderate to severe mitral regurgitation who presents in acute decompensated heart failure found to have atrial flutter with rapid ventricular response
Patient has had worsening dyspnea on exertion as well as lower extremity edema over the last few weeks. On admission she was found to be hypoxic requiring supplemental oxygen via nasal cannula. proBNP elevated over 1999 and chest x-ray with
pulmonary edema and bilateral pleural effusions. Recent transthoracic echocardiogram at [facility] with preserved left-ventricular systolic function and moderate to severe mitral regurgitation.
Remains volume overloaded on exam but improved from yesterday with IV Lasix
Continue diuresis
Wean oxygen as able
Follow renal function/electrolytes and daily weights
In regards to her atrial flutter
Continue metoprolol and amiodarone for rate control
Continue Eliquis for cardioembolic prophylaxis
Tentative plan for OMAR/direct-current cardioversion when more euvolemic - OMAR will be helpful to further assess her mitral valve
Addendum entered and electronically signed by Veronica Tidwell PA-C 10/28/24 13:34:
CORRECTION TO BELOW: typical atrial flutter with RVR
Original Note:
Today's Communication / Plan
-
continue IV lasix
wean supp O2
she continues to report significant SOB despite marked diuresis. degree of SOB appears out of proportion to degree of CHF. awaiting Cr. ? anxiety contributing. also with recent surgery, consider r/o PE. consider repeat imaging
continue toprol, amiodarone, eliquis
OMAR/CV prior to DC
Impression / Plan
-
Primary Education Professor: scheduled to see Dr. Wiggins as new patient 11/24/24
Assessment:
Presentation with SOB, LE, orthopnea, palpitations
Acute HFpEF, small to mod B/L pleural effusions by CXR 10/26/24
Negative troponin
Aflutter with RVR
Atrial fibrillation, diagnosed 09/2024
Anticoagulation with Eliquis
Moderate to severe mitral regurgitation by echo 09/23/2024
Status post lumbar spine surgery 09/28/2024 at [facility]. Maged
Parkinson's disease
ECHO at [facility] 09/23/24: EF 64%, mildly dilated left atrium, moderate to severe MR, mild TR
Plan:
-Patient with recent diagnosis new atrial fibrillation found in setting of preop for lumbar spine surgery completed 09/28/2024 at [place] now presents with recurrence of atrial arrhythmia and acute CHF. Had outpatient echo which showed moderate to
severe MR, also new diagnosis.
-she continues to report significant SOB despite marked diuresis (weight down 9 pounds overnight if accurate). degree of SOB appears out of proportion to degree of CHF. awaiting Cr this AM. remains on 4L NC. ? anxiety contributing. also with recent
surgery, consider r/o PE. consider repeat CXR in AM
-Suspect CHF secondary to arrhythmia as well as known valvular disease
-remains in afib on review of tele overnight with acceptable HR control. continue Toprol 25 mg daily. amiodarone 200mg TID added 10/27 as unlikely to maintain SR with rate control alone in setting of MR. QTc stable by EKG 10/28
-continue eliquis
-Once improved from a volume standpoint, would plan for OMAR/cardioversion to both look at mitral valve as well as to restore sinus rhythm
-Based on results of OMAR, would consider evaluation for surgical mitral valve intervention versus MitraClip
-PT/OT
-Of note, patient's tells me they are planning to move to [place], [place] to be closer to their son. This has been pushed back already. We discussed likely benefit of staying here until patient's current medical issues are addressed
and they are in full agreement with this. they were planning to follow with Dr. Feliciano Ferguson, scheduled 11/24/24
-Discussed with nursing.
Progress Note - Education Professor
Subjective
Date of Service: October 28, 2024
reports this morning was very SOB, now improved somewhat s/p IV lasix and with increased O2.
Objective
Labs:
10/27/24 04:43
Labs
Hgb 12.1 g/dL (12.0-16.0) 10/27/24 04:43
Hct 36.6 % (37.0-47.0) L 10/27/24 04:43
Plt Count 303 10^3/uL (130-400) 10/27/24 04:43
Sodium 134 mmol/L (135-145) L 10/27/24 06:25
Potassium 3.6 mmol/L (3.5-5.1) 10/27/24 06:25
BUN 17 mg/dl (7-17) 10/27/24 06:25
Creatinine 0.5 mg/dL (0.6-1.0) L 10/27/24 06:25
Glucose 129 mg/dl (70-99) H 10/27/24 06:25
Troponins
10/27/24
04:43
Troponin I < 0.012
Vital Signs and I&O:
Vital Signs
Temp Pulse Resp BP Pulse Ox
97.8 F 101 20 106/79 95
10/28/24 07:44 10/28/24 07:47 10/28/24 07:44 10/28/24 07:47 10/28/24 07:44
Vital Signs
Temp Pulse Resp BP Pulse Ox
97.8 F 101 20 106/79 95
10/28/24 07:44 10/28/24 07:47 10/28/24 07:44 10/28/24 07:47 10/28/24 07:44
Intake & Output
10/26/24 10/27/24 10/28/24 10/29/24
07:59 07:59 07:59 07:59
Intake Total 240 / 240
Output Total 600 / 850 750 / 750
Balance -360 / -610 -750 / -750
Physical Exam
Physical Exam
GEN: No distress, awake, alert, oriented x3. frail appearing. on supp O2
HEENT: supple, anicteric, mmm, eomi
LUNGS: Mild exp wheezes B/L
CV: Irreg, S1/S2, 2/6 murmur
ABD: soft, BS+, NT/ND
EXT: No cyanosis, clubbing, edema
NEURO: Gross non-focal
SKIN: Warm, pink, dry. No rash
[2024-10-28] MEDS: RESTASIS 0.05% OPHTHALMIC EMULSION 1 DROPS OPHTH ×2 (10:25→20:22)
--- NOTE | 2024-10-28 12:19 | CM ---
CM following for DC planning needs.
Met w/ patient and dtr., Nicol (c: [phone]) at bedside.
Pt. states that she was at [facility] for x3 weeks and DC'ed to home earlier this wk. She is unclear if VN was arranged.
She normally resides alone w/ her spouse in a private, 2 story home. She is indep. w/ use of a RW. Prior to admittance to [facility], patient had back surgery. She also suffers from Parkinsons Disease.
We discussed possible DC options. Pt. reports a not so good experience at [facility] and would not wish to return to SNF there.
We discussed Acute Rehab as an option-she reports that she was not approved for acute rehab following prior hospitalization. Will look in to this whether this is a viable option.
We discussed VN and possible private duty aides. Will send dtr. listing of private duty aides to review.
Call to SW @ [facility] to identify which, if any, VN pt. was referred to, await call back.
DC plan uncertain. Will depend on functional mobility as patient progresses through hospitalization.
Will follow closely.
--- NOTE | 2024-10-28 12:32 | PN.CDI ---
CDI
- -
CDI:
Physician Documentation Request
Admit Date: 10/27/24 07:26
Dear Cardiology,
Please review the following and provide your response in the progress notes.
Clinical Indicators:
- 10/28 Cardiology 'Aflutter with RVR'
- 10/27 EKG with atrial flutter, rate 294
- 10/28 EKG with atrial flutter, rate 271
- IV Cardizem
If possible, please provide further specificity regarding atrial flutter, such as:
Typical Atrial Flutter - Type I: Classic or common atrial flutter, Rate is 240-340 beats/min. Usually responds to atrial pacing.
Atypical Atrial Flutter - Type II: Less common and more unstable. Rate is 340-440 beats/min. Less responsive to atrial pacing.
Other - please specify
Use of terms such as suspected, likely, concern for, or probable (associated with a specific diagnosis that is being evaluated, monitored, or treated as if it exists) are acceptable and can be coded in the inpatient setting, when documented at the
time of discharge.
Thank you,
Delfina Lopez RN
CDI Specialist
Please use your independent medical judgment in providing your response.
--- NOTE | 2024-10-28 12:39 | PN.CDI ---
CDI
- -
CDI:
Physician Documentation Request
Admit Date: 10/27/24 07:26
Dear Doctor Emely,
Please review the following and provide your response in the progress notes.
Clinical Indicators:
Height: 5'3
Weight: 99lbs
BMI: 17.7
If possible, please provide an associated diagnosis related to the abnormal BMI, such as:
Underweight
Cachexia
Other (please specify)
Use of terms such as suspected, likely, concern for, or probable (associated with a specific diagnosis that is being evaluated, monitored, or treated as if it exists) are acceptable and can be coded in the inpatient setting, when documented at the
time of discharge.
Thank you,
Delfina Lopez RN
CDI Specialist
Please use your independent medical judgment in providing your response.
[2024-10-28 17:38] LABS: Blood Urea Nitrogen 20 mg/dl (7-17); Calcium 8.7 mg/dl (8.4-10.2); Carbon Dioxide 29 mmol/L (22-30); Chloride 96 mmol/L (98-107); Estimated Creatinine Clearance 57 ml/min; Glucose 117 mg/dl (70-99); Potassium 3.9 mmol/L (3.5-5.1); Sodium 134 mmol/L (135-145); eGFR > 60.00
[2024-10-28] MEDS: TYLENOL 650 MG PO (20:22)
[2024-10-28] MEDS: MIRALAX 17 GRAMS PO (20:22)
[2024-10-28] MEDS: MELATONIN 10 MG PO (22:55)
[2024-10-28] MEDS: SINEMET CR 25-100 (EXTENDED RELEASE) 1 TABLET PO (22:55)
--- NOTE | 2024-10-28 23:12 | PTCARENOTE ---
Pt remains in Aflutter on tele with HR 80s-110s. AAOx3 but forgetful at times. Rings appropriately for assistance. Ambulates with x1 assist and rolling walker. Pt with complaints of left hip pain, Tylenol administered per order, see JAN. Pt
reports relief of pain following Tylenol. No complaints of SOB, POX 97% on 4L NC. Call cam within reach.
[2024-10-29] VITALS (7 sets, daily range): BP systolic 84–129; BP diastolic 54–72; BMI 18.8
[2024-10-29 03:52] LABS: Blood Urea Nitrogen 21 mg/dl (7-17); Calcium 9.1 mg/dl (8.4-10.2); Carbon Dioxide 31 mmol/L (22-30); Chloride 97 mmol/L (98-107); Estimated Creatinine Clearance 57 ml/min; Glucose 112 mg/dl (70-99); Sodium 138 mmol/L (135-145); eGFR > 60.00
[2024-10-29] MEDS: SINEMET 25-100 1 TABLET PO ×5 (08:15→21:00)
--- NOTE | 2024-10-29 08:55 | W.PN.HOSP.TC ---
Today's Communication/Plan
-
see A/P
Assessment / Plan
Assessment / Plan
HPI: 74-year-old female with past medical history of Parkinson's disease, A-fib and spinal stenosis status post recent spine surgery; who presented to the emergency department with shortness of breath and tachycardia, symptoms began after discharge
from rehab.
She reported that she has had swelling of her lower extremities bilaterally at rehab.
She was wheezing and spouse noted increased work of breathing. She had some chest tightness. He started noticing that she had severe dyspnea when laying down and was propping her up. He was monitoring heart rate in order to give her on metoprolol
for atrial fibrillation and noticed that her heart rate was in the 150s. Symptoms became very severe so she decided to bring her to the emergency department.
Patient reported that over 3 weeks ago she had preoperative evaluation for a spinal surgery. At that time she was found to have asymptomatic atrial fibrillation on EKG and was started on metoprolol and apixaban. She had an echocardiogram which
showed moderate to severe mitral regurg. She was pending follow-up with cardiology.
A/P:
# New acute onset CHF (unknown type), suspect 2/2 aflutter/fib RVR.
# Mitral regurgitation, Moderate to severe
rate control as below
cont IV Lasix now 40 mg BID, follow daily weights and i/os
Echo: EF 50 to 55%. Diastolic function indeterminate. Moderate to severe mitral regurgitation. Estimated pulmonary artery systolic pressure 58 mmHg. Compared to prior echocardiogram September 23, 2024, no significant changes.
Cardiology on board, planning for tentative OMAR with DCCV when more euvolemic, timing TBD
# Acute hypoxic resp insufficiency 2/2 to above
Placed on 4L NC, wean as tolerated, pt is not on home O2
# Atrial flutter with RVR
Diltiazem gtt -> Amiodarone 200 mg TID
Cont GLASS BEVELLER Toprol 25 mg daily
anticoagulation with apixaban
animation director on board
# spinal stenosis s/p back surgery
pain well controlled. acetaminophen prn
PT OT eval when able
# Parkinson
continue sinamet per home med
DVT PPX - on apixaban
Code status - full code
DW RN
DW Card
DW at bedside
Anticipated Discharge: > 48 hours
Subjective/Interval History
-
Date of Service: October 29, 2024
Objective Data
-
Labs:
Laboratory Results
10/29/24
02:36
Sodium 138
Potassium 4.0
Chloride 97 L
Carbon Dioxide 31 H
BUN 21 H
Creatinine 0.5 L
Glucose 112 H
Calcium 9.1
Vital Signs:
Vital Signs
Temp Pulse Resp BP Pulse Ox
36.7 C 106 20 129/72 97
10/29/24 07:00 10/29/24 07:02 10/29/24 07:00 10/29/24 07:02 10/29/24 07:00
I&O
10/28/24 10/29/24 10/30/24
06:59 06:59 06:59
Intake Total 240 / 240 480 / 480
Output Total 600 / 600 1550 / 1550
Balance -360 / -360 -1070 / -1070
Review of Systems
-
All other systems: Reviewed and negative
Physical Exam
-
General: Well Developed, Well Nourished, Comfortable, Respiratory Distress and Conversant
HEENT: Normocephalic, Atraumatic, Nose Appears Normal, Ears Appear Normal and Oxygen (4L NC)
Respiratory: Crackles and Non Labored Respirations; Negative Accessory Resp Muscle Use
Cardiac: S1/S2 and Irregular Rhythm
GI: Soft, Nontender, Nondistended and Normal Bowel Sounds
Musculoskeletal: Edema, Right Lower Extrem and Edema, Left Lower Extrem
Skin: Warm and Dry
Neuro: Awake, Alert, Oriented and AO x 3
Psych: Calm and Intact Judgement/Insight
Data Reviewed
-
Medical Tests (Nuc Med, Echo etc): Report Reviewed by me (echo)
Labs: Labs Reviewed by me
--- NOTE | 2024-10-29 09:25 | W.PN.CARDCBS ---
Addendum entered and electronically signed by Bandar Latif MD 10/29/24 10:36:
I saw and examined the patient.
The Lpn Cma's note was reviewed and I agree with the note.
Comment: Briefly, 74-year-old woman with recently identified atrial fibrillation and moderate to severe mitral regurgitation who presents in acute decompensated heart failure found to have atrial flutter with rapid ventricular response
Volume status is improving based on physical exam however she still requiring supplemental O2, 4 L of oxygen via nasal cannula
Continue IV diuresis
Wean oxygen as able
Follow renal function/electrolytes and daily weights
In regards to her atrial flutter
Continue metoprolol and amiodarone for rate control goal <110 bpm - HRs are better today
Continue Eliquis for cardioembolic prophylaxis
Tentative plan for OMAR/direct-current cardioversion when more euvolemic - OMAR will be helpful to further assess her mitral valve
Rest per Veronica Tidwell
Original Note:
Today's Communication / Plan
-
increase IV lasix to 40mg BID
wean supp O2 as able
continue toprol, amiodarone
for OMAR/CV when optimized from volume standpoint - possibly tomorrow but more likely Saturday
Impression / Plan
-
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 Wiggins as new patient 11/24/24
Assessment:
Presentation with SOB, LE, orthopnea, palpitations
Acute HFpEF, small to mod B/L pleural effusions by CXR 10/26/24
Negative troponin
Aflutter with RVR
Atrial fibrillation, diagnosed 09/2024
Anticoagulation with Eliquis
Moderate to severe mitral regurgitation by echo 09/23/2024
Status post lumbar spine surgery 09/28/2024 at [facility]
Parkinson's disease
ECHO at [facility] 09/23/24: EF 64%, mildly dilated left atrium, moderate to severe MR, mild TR
ECHO 10/28/24: EF 50 to 55%, moderately dilated left and right atria, multiple jets of moderate to severe MR, mild AR, moderate TR, pulmonary hypertension, PASP 58 mmHg, mild AL, pleural effusion
Plan:
-Patient with recent diagnosis new atrial fibrillation found in setting of preop for lumbar spine surgery completed 09/28/2024 at [facility] now presents with recurrence of atrial arrhythmia and acute CHF. Had outpatient echo which showed moderate to
severe MR, also new diagnosis.
-she reports breathing is improving from admission. remains on 4L NC, wean as able. continue IV lasix, will attempt to increase dose to 40mg IV BID. weight trending down if accurate
-Suspect CHF secondary to arrhythmia as well as known valvular disease
-echo 10/28 with results as above
-remains in afib on review of tele overnight with acceptable HR control. continue Toprol 25 mg daily. amiodarone 200mg TID added 10/27 as unlikely to maintain SR with rate control alone in setting of MR. QTc stable by EKG 10/28
-continue eliquis
-Once improved from a volume standpoint, would plan for OMAR/cardioversion to both look at mitral valve as well as to restore sinus rhythm, possibly tomorrow but more likely Saturday
-Based on results of OMAR, would consider evaluation for surgical mitral valve intervention versus MitraClip
-PT/OT
-Of note, patient's tells me they are planning to move to [place], [place] to be closer to their son. This has been pushed back already. We discussed likely benefit of staying here until patient's current medical issues are addressed
and they are in full agreement with this. they were planning to follow with Dr. Feliciano Ferguson, scheduled 11/24/24
Progress Note - Communications Equipment Installer
Subjective
Date of Service: October 29, 2024
reports breathing improving from admission. still remains with some SOB at times
Objective
Labs:
10/27/24 04:43
10/29/24 02:36
Labs
Hgb 12.1 g/dL (12.0-16.0) 10/27/24 04:43
Hct 36.6 % (37.0-47.0) L 10/27/24 04:43
Plt Count 303 10^3/uL (130-400) 10/27/24 04:43
Sodium 138 mmol/L (135-145) 10/29/24 02:36
Potassium 4.0 mmol/L (3.5-5.1) 10/29/24 02:36
BUN 21 mg/dl (7-17) H 10/29/24 02:36
Creatinine 0.5 mg/dL (0.6-1.0) L 10/29/24 02:36
Glucose 112 mg/dl (70-99) H 10/29/24 02:36
Troponins
10/27/24
04:43
Troponin I < 0.012
Vital Signs and I&O:
Vital Signs
Temp Pulse Resp BP Pulse Ox
98.1 F 106 20 129/72 97
10/29/24 07:00 10/29/24 07:02 10/29/24 07:00 10/29/24 07:02 10/29/24 07:00
Vital Signs
Temp Pulse Resp BP Pulse Ox
98.1 F 106 20 129/72 97
10/29/24 07:00 10/29/24 07:02 10/29/24 07:00 10/29/24 07:02 10/29/24 07:00
Intake & Output
10/27/24 10/28/24 10/29/24 10/30/24
07:59 07:59 07:59 07:59
Intake Total 240 / 240 480 / 480
Output Total 600 / 850 1550 / 1550
Balance -360 / -610 -1070 / -1070
Physical Exam
Physical Exam
GEN: No distress, awake, alert, oriented x3. frail appearing. on supp O2. sitting in chair
HEENT: supple, anicteric, mmm, eomi
LUNGS: decreased BS bases B/L
CV: Irreg, S1/S2, 2/6 murmur
ABD: soft, BS+, NT/ND
EXT: No cyanosis, clubbing. trace edema of B/L ankles
NEURO: Gross non-focal
SKIN: Warm, pink, dry. No rash
[2024-10-29] MEDS: FLUSH (NSS) 2 FLUSH IV (09:41)
[2024-10-29] MEDS: RASAGILINE MESYLATE 1 MG PO (09:42)
[2024-10-29] MEDS: PACERONE 200 MG PO ×3 (09:42→22:45)
[2024-10-29] MEDS: ELIQUIS 5 MG PO ×2 (09:42→21:00)
[2024-10-29] MEDS: RESTASIS 0.05% OPHTHALMIC EMULSION 1 DROPS OPHTH ×2 (09:42→21:00)
[2024-10-29] MEDS: TOPROL XL 25 MG PO (09:42)
[2024-10-29] MEDS: MIRALAX 17 GRAMS PO (09:42)
[2024-10-29] MEDS: THERAGRAN 1 TABLET PO (09:42)
[2024-10-29] MEDS: LASIX IV ×2 (10:04→16:00)
[2024-10-29] MEDS: MUCINEX 600 MG PO ×2 (10:32→21:00)
--- NOTE | 2024-10-29 11:24 | PTCARENOTE ---
Assumed care of pt from prev nsg shift; AAOx3 w/no c/o CP, pt reports still feeling SOB. Pt's SpO2 94% on 4L O2 via NC. Pt continues to appear anxious at this time. Pt assisted OOB & repositioned for breathing comfort. Pt's ordered IV Lasix
administered. Pt w/VS stable w/HR in the 90's at rest & in the 100's-110's w/activity. Pt is Afib on telemetry monitoring. BP stable at 129/72 this AM. Pt advised of plan of care. Pt w/call cam within reach & no addtl needs at this time.
--- NOTE | 2024-10-29 11:57 | PN.CDI ---
CDI
- -
CDI:
Physician Documentation Request
Admit Date: 10/27/24 07:26
Dear Doctor Emely,
Please review the following and provide your response in the progress notes.
Clinical Indicators:
- 10/28 Guidance And Control System Engineer note indicates moderate protein calorie malnutrition
- Unintentional weight loss >10% in 6 months
- Nutrient intake </= 50% estimated energy needs for >/= 1 month
Based on the above information and your assessment, which of the following most accurately represents the patient's nutritional status?
Moderate protein calorie malnutrition
Other (please specify)
[place] Criteria ([facility] Hospitalist 2017)
2 or more criteria must be present for either
non severe or severe malnutrition
Note that the criteria differs related to the
presence of an acute or chronic illness
Acute Illness Chronic Illness
Energy Intake Non Severe: <75% for >7 days Non Severe: <75% for >1 month
Severe: <50% for >5 days Severe: <75% for >1 month
Weight Loss Non Severe: 1-2% over 1 week Non Severe: 5% over 1 month
5% over 1 month 7.5% over 3 months
7.5% over 3 months 10% over 6 months
1 year N/A 20% over 1 year
Severe: >2% over 1 week Severe: >5% over 1 month
>5% over 1 month >7.5% over 3 months
>7.5% over 3 months >10% over 6 months
1 year N/A >20% over 1 year
Body Fat Non Severe: Mild Decrease Non Severe: Mild Loss
Severe: Moderate Decrease Severe: Severe Loss
Muscle Mass Non Severe: Mild Decrease Non Severe: Mild Loss
Severe: Moderate Decrease Severe: Severe Loss
Fluid Accumulation Non Severe: Mild Accumulation Non Severe: Mild Accumulation
Severe: Moderate to severe Severe: Moderate to severe
accumulation accumulation
Reduced Epic Trainer Strength Non Severe: N/A Non Severe: N/A
Severe: Measurably reduced Severe: Measurably reduced
Additional criteria that can be used to Determine if Mild or Moderate Malnutrition ([employer] Manual 2018)
Mild Moderate Severe
Albumin gm/dl <3.0 gm/dl <2.5 gm/dl <2.0 gm/dl
Pre Albumin mg/dl <15 gm/dl <10 mg/dl <5.0 mg/dl
BMI <18.5 <17 <16
Use of terms such as suspected, likely, concern for, or probable (associated with a specific diagnosis that is being evaluated, monitored, or treated as if it exists) are acceptable and can be coded in the inpatient setting, when documented at the
time of discharge.
Thank you,
Delfina Lopez RN
CDI Specialist
Please use your independent medical judgment in providing your response.
--- NOTE | 2024-10-29 12:27 | CM ---
CM following for DC planning needs.
Met w/ patient and spouse at bedside.
Pt. reports that she is doing well. We discussed DC options dependent upon how patient progresses in therapy.
The plan is for either [facility] v home care (+ Private duty agency).
Referral has been made to [facility]; liaison feels that patient is appropriate for this level of care.
We discussed VN. Family prefers [facility]. Referral made, awaiting response. Listing of private duty agencies sent to dtr. for review.
Will cont. to follow for DC plan; acute v. home health care.
[2024-10-29] MEDS: TYLENOL 650 MG PO (17:34)
[2024-10-29] MEDS: SINEMET CR 25-100 (EXTENDED RELEASE) 1 TABLET PO (22:45)
[2024-10-30] VITALS (11 sets, daily range): BP systolic 92–133; BP diastolic 54–83; BMI 18.9
--- NOTE | 2024-10-30 01:25 | PTCARENOTE ---
Assumed care of pt at change of shift. Remains Aflutter on tele with HR 90s at rest and low 100-110 with activity. Pt AAOx3 but forgetful at times- rings appropriately for assistance. Ambulates to bathroom with x1 assist and rolling walker. Pt
appears to become anxious at times, becomes tachypneic briefly with shallow breathing, POX 96% on 2L O2. Pt asked RN 'is oxygen still flowing through here?' When RN told the pt she was still receiving oxygen, breathing pattern returned to normal.
Denies pain at this time. Pt NPO at midnight for OMAR/cardioversion. Plan of care discussed and pt verbalizes understanding. Call cam within reach.
[2024-10-30 04:12] LABS: Blood Urea Nitrogen 24 mg/dl (7-17); Calcium 8.9 mg/dl (8.4-10.2); Carbon Dioxide 34 mmol/L (22-30); Chloride 95 mmol/L (98-107); Estimated Creatinine Clearance 61 ml/min; Glucose 98 mg/dl (70-99); Magnesium 1.8 mg/dl (1.6-2.3); Potassium 3.9 mmol/L (3.5-5.1); Sodium 137 mmol/L (135-145); eGFR > 60.00
[2024-10-30] MEDS: SINEMET 25-100 1 TABLET PO ×5 (05:20→20:09)
--- NOTE | 2024-10-30 08:09 | PTCARENOTE ---
Assumed care of pt from prev nsg shift; AAOx3 w/no c/o CP, pt reports still feeling SOB & weak. Pt's SpO2 96% on 2L O2 via NC. Pt w/VS stable w/HR in the 90's at rest & in the 100's-110's w/activity. Pt is Afib on telemetry monitoring. BP low, but
stable at 94/55 this AM. Pt advised of plan of care & pt very anxious re: poss OMAR/CV for today. Emotional support provided. Pt w/call cam within reach & no addtl needs at this time.
--- NOTE | 2024-10-30 08:15 | W.PN.CARDCBS ---
Addendum entered and electronically signed by Margie Thornton DO 10/31/24 08:50:
I saw and examined the patient.
The Homicide Investigator's note was reviewed and I agree with the note.
Comment: Patient was seen and examined over several visits on 10/30/2024; Late entry. Chart and telemetry reviewed. She is scheduled for a transesophageal echocardiogram/cardioversion today. We reviewed procedure in detail and I answered all
questions.She reported improved/stable shortness of breath overnight and no chest pain or pressure.
General: No acute distress, AAOX3
Heart: Irregularly irregular, positive S1/S2, 2/6 SM
Lungs: Bronchovesicular breath sounds decreased at the bases right greater than left with crackles bilaterally
Abd: Positive BS, NT/ND, neg rebound/rigidity/guarding
Ext: No edema
Neuro: nonfocal
Plan:
Rapid atrial flutter in the setting of heart failure and moderate to severe mitral regurgitation
-Transesophageal echocardiogram without left atrial appendage thrombus now status post cardioversion with 150 J x 1 to sinus rhythm
-Continue amiodarone 200 mg 3 times daily and uptitrate if QTc allows. Post cardioversion QTc 500 ms
-Continue uninterrupted anticoagulation
-Given general jaw anatomy, would recommend outpatient sleep study
HFpEF
-IV lasix
-OGDMT as able, limited by hypotension/suspected autonomic dysfunction with underlying Parkinsons
-Will have CM look into SGLT2 inh
-Wean O2 as able
Moderate to severe Mitral regurgitation with structurally normal valve without prolapse on echocardiogram
-Would reassess in 3 months in SR on OMT
Status post lumbar spine surgery 09/28/2024 at [facility]
-PT/OT
-Of note, patient's tells me they are planning to move to [place], [place] to be closer to their son. This has been pushed back already. We discussed likely benefit of staying here until patient's current medical issues are addressed
and they are in full agreement with this. they were planning to follow with Dr. Feliciano Ferguson scheduled 11/24/24
Original Note:
Today's Communication / Plan
-
NPO for OMAR/CV today
continue toprol, amiodarone, eliquis
continue IV lasix
follow BPs
wean O2
Impression / Plan
-
Primary Tire Wrapper: scheduled to see Dr. Wiggins as new patient 11/24/24
Assessment:
Presentation with SOB, LE, orthopnea, palpitations
Acute HFpEF, small to mod B/L pleural effusions by CXR 10/26/24
Negative troponin
Aflutter with RVR
Atrial fibrillation, diagnosed 09/2024
Anticoagulation with Eliquis
Moderate to severe mitral regurgitation by echo 09/23/2024
Status post lumbar spine surgery 09/[facility]/2024 at [facility]
Parkinson's disease
ECHO at [facility] 09/23/24: EF 64%, mildly dilated left atrium, moderate to severe MR, mild TR
ECHO 10/28/24: EF 50 to 55%, moderately dilated left and right atria, multiple jets of moderate to severe MR, mild AR, moderate TR, pulmonary hypertension, PASP 58 mmHg, mild SC, pleural effusion
Plan:
-Patient with recent diagnosis new atrial fibrillation found in setting of preop for lumbar spine surgery completed 09/28/2024 at [facility] now presents with recurrence of atrial arrhythmia and acute CHF. Had outpatient echo which showed moderate to
severe MR, also new diagnosis.
-Was started on p.o. amiodarone 200 mg 3 times daily. Remains in atrial flutter with adequate ventricular response overnight. QTc stable by EKG 10/28, reassess in sinus rhythm
-continue eliquis
-She is planned for OMAR/cardioversion today.
-Remains on 2 L nasal cannula. Hypotension has prohibited more aggressive diuresis. Remains on IV Lasix 40 mg daily
-Suspect CHF secondary to arrhythmia as well as known valvular disease. Echo from 10/28 with results as above
-if remains with hypoxia after diuresis and with scientology of SR, may need to consider alternative causes of SOB.
-Based on results of OMAR, would consider evaluation for surgical mitral valve intervention versus MitraClip
-PT/OT
-Of note, patient's tells me they are planning to move to [place], [place] to be closer to their son. This has been pushed back already. We discussed likely benefit of staying here until patient's current medical issues are addressed
and they are in full agreement with this. they were planning to follow with Dr. Feliciano Ferguson, scheduled 11/24/24
-d/w nursing
Progress Note - Tire Wrapper
Subjective
Date of Service: October 30, 2024
Reports did not sleep well overnight as was nervous about procedure today. Remains with some shortness of breath
Objective
Labs:
10/27/24 04:43
10/30/24 03:15
Labs
Hgb 12.1 g/dL (12.0-16.0) 10/27/24 04:43
Hct 36.6 % (37.0-47.0) L 10/27/24 04:43
Plt Count 303 10^3/uL (130-400) 10/27/24 04:43
Sodium 137 mmol/L (135-145) 10/30/24 03:15
Potassium 3.9 mmol/L (3.5-5.1) 10/30/24 03:15
BUN 24 mg/dl (7-17) H 10/30/24 03:15
Creatinine 0.5 mg/dL (0.6-1.0) L 10/30/24 03:15
Glucose 98 mg/dl (70-99) 10/30/24 03:15
Vital Signs and I&O:
Vital Signs
Temp Pulse Resp BP Pulse Ox
98.2 F 93 18 94/55 96
10/30/24 07:22 10/30/24 08:00 10/30/24 07:22 10/30/24 07:20 10/30/24 07:22
Vital Signs
Temp Pulse Resp BP Pulse Ox
98.2 F 93 18 94/55 96
10/30/24 07:22 10/30/24 08:00 10/30/24 07:22 10/30/24 07:20 10/30/24 07:22
Intake & Output
10/28/24 10/29/24 10/30/24 10/31/24
07:59 07:59 07:59 07:59
Intake Total 240 / 240 480 / 480 880 / 880
Output Total 600 / 850 1550 / 1550 800 / 800
Balance -360 / -610 -1070 / -1070 80 / 80
Physical Exam
Physical Exam
GEN: No distress, awake, alert, oriented x3. frail appearing. on supp O2.
HEENT: supple, anicteric, mmm, eomi
LUNGS: crackles B/L bases
CV: Irreg, S1/S2, 2/6 murmur
ABD: soft, BS+, NT/ND
EXT: No cyanosis, clubbing. trace edema of B/L ankles
NEURO: Gross non-focal
SKIN: Warm, pink, dry. No rash
--- NOTE | 2024-10-30 08:25 | W.PN.HOSP.TC ---
Addendum entered and electronically signed by Moira Han MD 10/30/24 14:07:
# Moderate protein calorie malnutrition
Addendum entered and electronically signed by Moira Han MD 10/30/24 08:33:
Card note stated pt is for OMAR/CV today
Original Note:
Today's Communication/Plan
-
see A/P
Assessment / Plan
Assessment / Plan
HPI: 74-year-old female with past medical history of Parkinson's disease, A-fib and spinal stenosis status post recent spine surgery; who presented to the emergency department with shortness of breath and tachycardia, symptoms began after discharge
from rehab.
She reported that she has had swelling of her lower extremities bilaterally at rehab.
She was wheezing and spouse noted increased work of breathing. She had some chest tightness. He started noticing that she had severe dyspnea when laying down and was propping her up. He was monitoring heart rate in order to give her on metoprolol
for atrial fibrillation and noticed that her heart rate was in the 150s. Symptoms became very severe so she decided to bring her to the emergency department.
Patient reported that over 3 weeks ago she had preoperative evaluation for a spinal surgery. At that time she was found to have asymptomatic atrial fibrillation on EKG and was started on metoprolol and apixaban. She had an echocardiogram which
showed moderate to severe mitral regurg. She was pending follow-up with cardiology.
A/P:
# New acute onset CHF (unknown type), suspect 2/2 aflutter/fib RVR.
# Mitral regurgitation, Moderate to severe
rate control as below
cont IV Lasix now 40 mg BID, follow daily weights and i/os
Echo: EF 50 to 55%. Diastolic function indeterminate. Moderate to severe mitral regurgitation. Estimated pulmonary artery systolic pressure 58 mmHg. Compared to prior echocardiogram September 23, 2024, no significant changes.
Cardiology on board, planning for tentative OMAR with DCCV when more euvolemic, timing TBD
# Acute hypoxic resp insufficiency 2/2 to above
4L NC -> 2L NC, wean as tolerated, pt is not on home O2
# Atrial flutter with RVR
Diltiazem gtt -> Amiodarone 200 mg TID
Cont AUTO FLEET MAINTENANCE MANAGER Toprol 25 mg daily
anticoagulation with apixaban
client relationship manager on board
# spinal stenosis s/p back surgery
pain well controlled. acetaminophen prn
PT OT eval when able
# Parkinson
continue sinamet per home med
DVT PPX - on apixaban
Code status - full code
DW RN
Anticipated Discharge: > 48 hours
Subjective/Interval History
-
Date of Service: October 30, 2024
Objective Data
-
Labs:
Laboratory Results
10/30/24
03:15
Sodium 137
Potassium 3.9
Chloride 95 L
Carbon Dioxide 34 H
BUN 24 H
Creatinine 0.5 L
Glucose 98
Calcium 8.9
Vital Signs:
Vital Signs
Temp Pulse Resp BP Pulse Ox
36.8 C 93 18 94/55 96
10/30/24 07:22 10/30/24 08:00 10/30/24 07:22 10/30/24 07:20 10/30/24 07:22
I&O
10/29/24 10/30/24 10/31/24
06:59 06:59 06:59
Intake Total 480 / 480 880 / 880
Output Total 1550 / 1550 800 / 800
Balance -1070 / -1070 80 / 80
Review of Systems
-
All other systems: Reviewed and negative
Physical Exam
-
General: Well Developed, Well Nourished, Comfortable, Respiratory Distress, Conversant and Appears Chronically Ill
HEENT: Normocephalic, Atraumatic, Nose Appears Normal, Ears Appear Normal and Oxygen (2L NC)
Respiratory: Non Labored Respirations; Negative Accessory Resp Muscle Use
Cardiac: S1/S2 and Irregular Rhythm
GI: Soft, Nontender, Nondistended and Normal Bowel Sounds
Musculoskeletal: Edema, Right Lower Extrem and Edema, Left Lower Extrem
Skin: Warm and Dry
Neuro: Awake, Alert, Oriented and AO x 3
Psych: Calm and Intact Judgement/Insight
Data Reviewed
-
Medical Tests (Nuc Med, Echo etc): Report Reviewed by me (echo)
Labs: Labs Reviewed by me
[2024-10-30] MEDS: TOPROL XL PO (09:30)
[2024-10-30] MEDS: ELIQUIS 5 MG PO ×2 (09:31→20:05)
[2024-10-30] MEDS: RASAGILINE MESYLATE 1 MG PO (09:31)
[2024-10-30] MEDS: MUCINEX PO (09:31)
[2024-10-30] MEDS: LASIX 40 MG IV ×2 (09:31→16:23)
[2024-10-30] MEDS: RESTASIS 0.05% OPHTHALMIC EMULSION 1 DROPS OPHTH ×2 (09:31→22:02)
[2024-10-30] MEDS: PACERONE PO (09:32)
[2024-10-30] MEDS: THERAGRAN PO (09:32)
[2024-10-30] MEDS: MIRALAX 17 GRAMS PO (09:32)
[2024-10-30] MEDS: FLUSH (NSS) 2 FLUSH IV (09:32)
--- NOTE | 2024-10-30 09:50 | PTCARENOTE ---
Report given to EP lab & pt transported to EP lab via stretcher on 2L O2 via NC.
--- NOTE | 2024-10-30 12:10 | PTCARENOTE ---
Rec'd report from Angeline in the EP lab; Rec'd pt back AAOX3, drowsy but arousable. Pt w/VS stable w/HR now in the 80's & BP on return to the unit 98/56. Pt is now SR on telemetry monitoring. Pt assisted from stretcher to bed & then pt voided 400 mLs
of clear yellow urine on the bed steen. Pt w/callbell within reach.
--- NOTE | 2024-10-30 12:12 | CM ---
CM following for DC planning needs.
Met w/ patient's spouse Luis and friend at bedside. Pt. was in procedure.
We discussed 2 options for DC: [facility] acute [facility]hab v home w/ VN.
1. Referral to [facility] sent. harman Sheppard feels that patient is appropriate for acute level of care and can accept.
Will need to see how patient is faring functionally at time of DC. Then will have [facility] re-review and confirm that she is still appropriate for acute rehab level of care.
2. Referral to [facility] sent and accepted. If patient/ spouse feel comfortable going home and are functionally indep., we can proceed w/ this plan. Will need to update [facility] on DC date or if patient goes to ARU.
Left V/M message for Nicol kate to update.
Will cont. to follow for ARU v VN.
[2024-10-30] MEDS: TOPROL XL 25 MG PO (12:53)
[2024-10-30] MEDS: THERAGRAN 1 TABLET PO (12:53)
[2024-10-30] MEDS: MUCINEX 600 MG PO ×2 (12:53→20:07)
[2024-10-30] MEDS: PACERONE 200 MG PO ×3 (12:53→22:02)
--- NOTE | 2024-10-30 19:35 | PTCARENOTE ---
Pt OOB to chair with assist of one, pt walks with a shuffling gait and needs cues to move and perform her next task. Pt has a poor appetite, ensure supplements ordered.She remains in sinus rhythm, QTc 465ms. Pt learning about her new CHF, she
requests frequent reminders on all information. Pt remains on oxygen at 2L, slight SMITH.
[2024-10-30] MEDS: SINEMET CR 25-100 (EXTENDED RELEASE) 1 TABLET PO (22:02)
[2024-10-30] MEDS: MELATONIN 10 MG PO (22:18)
[2024-10-31] VITALS (8 sets, daily range): BP systolic 106–131; BP diastolic 57–72; BMI 18.4
--- NOTE | 2024-10-31 | PTCARENOTE ---
Rec'd pt at change of shift. PT AAO*3, VSS, and pt in NSR on TELE monitor. Patient denies any pain or discomfort. Pt maintained on high fall risk precautions and agreed to call for staff assistance before ambulating. Pt uses call cam
appropriately and demonstrated using call cam to walk to bathroom w staff assistance. Pt resting with call cam in reach. Plan of care ongoing.
[2024-10-31 05:12] LABS: Blood Urea Nitrogen 28 mg/dl (7-17); Calcium 8.8 mg/dl (8.4-10.2); Carbon Dioxide 37 mmol/L (22-30); Chloride 93 mmol/L (98-107); Estimated Creatinine Clearance 59 ml/min; Glucose 84 mg/dl (70-99); Magnesium 1.9 mg/dl (1.6-2.3); Sodium 136 mmol/L (135-145); eGFR > 60.00
[2024-10-31] MEDS: SINEMET 25-100 1 TABLET PO ×5 (06:17→21:20)
[2024-10-31] MEDS: RASAGILINE MESYLATE 1 MG PO (08:15)
[2024-10-31] MEDS: PACERONE 200 MG PO ×3 (08:15→22:20)
[2024-10-31] MEDS: ELIQUIS 5 MG PO ×2 (08:15→20:12)
[2024-10-31] MEDS: THERAGRAN 1 TABLET PO (08:15)
[2024-10-31] MEDS: LASIX 40 MG IV ×2 (08:15→16:51)
[2024-10-31] MEDS: MUCINEX 600 MG PO ×2 (08:15→20:12)
[2024-10-31] MEDS: TOPROL XL 25 MG PO (08:15)
[2024-10-31] MEDS: MIRALAX 17 GRAMS PO (08:16)
--- NOTE | 2024-10-31 08:41 | W.PN.HOSP.TC ---
Today's Communication/Plan
-
see A/P
Assessment / Plan
Assessment / Plan
HPI: 74-year-old female with past medical history of Parkinson's disease, A-fib and spinal stenosis status post recent spine surgery; who presented to the emergency department with shortness of breath and tachycardia, symptoms began after discharge
from rehab.
She reported that she has had swelling of her lower extremities bilaterally at rehab.
She was wheezing and spouse noted increased work of breathing. She had some chest tightness. He started noticing that she had severe dyspnea when laying down and was propping her up. He was monitoring heart rate in order to give her on metoprolol
for atrial fibrillation and noticed that her heart rate was in the 150s. Symptoms became very severe so she decided to bring her to the emergency department.
Patient reported that over 3 weeks ago she had preoperative evaluation for a spinal surgery. At that time she was found to have asymptomatic atrial fibrillation on EKG and was started on metoprolol and apixaban. She had an echocardiogram which
showed moderate to severe mitral regurg. She was pending follow-up with cardiology.
A/P:
# Atrial flutter with RVR
Diltiazem gtt -> Amiodarone 200 mg TID
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
anticoagulation with apixaban
s/p OMAR and successful CV 10/30
naval gunfire liaison officer on board
# New acute onset diastolic heart failure, suspect 2/2 aflutter/fib RVR.
# Mitral regurgitation, Moderate to severe
rate control as below
cont IV Lasix now 40 mg BID, follow daily weights and i/os
Echo: EF 50 to 55%. Diastolic function indeterminate. Moderate to severe mitral regurgitation. Estimated pulmonary artery systolic pressure 58 mmHg. Compared to prior echocardiogram September 23, 2024, no significant changes.
Cardiology on board
# Acute hypoxic resp insufficiency 2/2 to above, resolved
weaned from 4L NC to RA, pt is not on home O2
# Constipation
Start Senokot-S, Miralax
1x dose Dulcolax [place]
# spinal stenosis s/p back surgery
pain well controlled. acetaminophen prn
PT OT eval when able
# Parkinson
continue sinamet per home med
DVT PPX - on apixaban
Code status - full code
Dispo: PT OT eval
Anticipated Discharge: 24 - 48 hours
Subjective/Interval History
-
Date of Service: October 31, 2024
Objective Data
-
Labs:
Laboratory Results
10/31/24
03:27
Sodium 136
Potassium 4.0
Chloride 93 L
Carbon Dioxide 37 H
BUN 28 H
Creatinine 0.6
Glucose 84
Calcium 8.8
Vital Signs:
Vital Signs
Temp Pulse Resp BP Pulse Ox
36.7 C 87 18 120/62 94
10/31/24 07:04 10/31/24 08:00 10/31/24 07:04 10/31/24 07:03 10/31/24 07:04
I&O
10/30/24 10/31/24 11/01/24
06:59 06:59 06:59
Intake Total 880 / 880 240 / 240
Output Total 800 / 800
Balance 80 / 80 240 / 240
Review of Systems
-
All other systems: Reviewed and negative
Physical Exam
-
General: Well Developed, Well Nourished, No Apparent Distress, Comfortable, Conversant and Appears Chronically Ill
HEENT: Normocephalic, Atraumatic, Nose Appears Normal and Ears Appear Normal; Negative Oxygen
Respiratory: Non Labored Respirations; Negative Accessory Resp Muscle Use
Cardiac: Regular Rhythm and S1/S2
GI: Soft, Nontender and Nondistended
Musculoskeletal: Edema, Right Lower Extrem (mild) and Edema, Left Lower Extrem (mild)
Skin: Warm and Dry
Neuro: Awake, Alert, Oriented and AO x 3
Psych: Calm and Intact Judgement/Insight
Data Reviewed
-
Medical Tests (Nuc Med, Echo etc): Report Reviewed by me (echo)
Labs: Labs Reviewed by me
--- NOTE | 2024-10-31 08:52 | ITS.CL.CARDI ---
Supersonic Engineer - Cardioversion
Cardioversion
Procedure Report:
Date of Procedure: 10/30/24
Procedure: Cardioversion
Indication: Symptomatic atrial flutter
Performing Physician: Margie Thornton DO [facility]
Anticoagulation: Eliquis
Antiarrhythmic: Amiodarone
Preprocedure transesophageal echocardiogram: Please see official report. No left atrial appendage thrombus.
Technique: The patient was brought to the holding area. Signed informed consent was obtained. A time out was called and performed. The patient was anesthetized by the anesthesia service. Anticoagulation status was reviewed and appropriate. R2 pads
were placed anteriorly and posteriorly. A transesophageal echocardiogram was performed without complications. No left atrial appendage thrombus. A150 J synchronized biphasic shock restored normal sinus rhythm without significant bradycardia. There
were no complications.
Conclusion: Uncomplicated cardioversion from atrial flutter to sinus rhythm.
Recommendation: Routine post cardioversion care. Continue skilled nursing anticoagulation.
--- NOTE | 2024-10-31 09:28 | W.PN.CARDCBS ---
Addendum entered and electronically signed by Austin Kumar DO 10/31/24 11:46:
I saw and examined the patient.
The Assembly Line Inspector's note was reviewed and I agree with the note.
Comment:
Patient seen and examined. Patient reporting continued shortness of breath. Telemetry shows sinus rhythm no recurrence of AF
A/P as below
No clear evidence of volume overload on examination
Plan for BNP and chest x-ray in a.m.
QT/QTc stable on amiodarone
Original Note:
Today's Communication / Plan
-
Dry weight not clear, recheck pro-BNP and CXR in AM
Maintaining SR after OMAR/CV yesterday
Added Farxiga 10 mg daily
EF was 45% by OMAR with mod to sev MR, will continue to follow as an outpatient
Impression / Plan
-
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 Wiggins as new patient 11/24/24
Assessment:
Presentation with SOB, LE, orthopnea, palpitations
Acute HFpEF, small to mod B/L pleural effusions by CXR 10/26/24
Negative troponin
Aflutter with RVR
Atrial fibrillation, diagnosed 09/2024
Anticoagulation with Eliquis
Moderate to severe mitral regurgitation by echo 09/23/2024
Status post lumbar spine surgery 09/28/2024 at [facility]
Parkinson's disease
ECHO at [facility] 09/23/24: EF 64%, mildly dilated left atrium, moderate to severe MR, mild TR
ECHO 10/28/24: EF 50 to 55%, moderately dilated left and right atria, multiple jets of moderate to severe MR, mild AR, moderate TR, pulmonary hypertension, PASP 58 mmHg, mild [place], pleural effusion
OMAR 10/30/24: EF 45 to 50%, normal RV size with low normal RV systolic function, no MVP, 2 jets of MR graded moderate to severe with peak E velocity 1.04M/S and mean transmitral gradient 2 mmHg, aortic sclerosis without stenosis, no significant
pericardial effusion
Plan:
-Remains in SR following OMAR/CV 10/30/24. Patient did not notice any symptomatic change and reports she was asymptomatic with Afib prior to CV as well.
-Outpatient dose of Eliquis 5 mg BID (age 74, Cre 0.6, wt 47.1 kg) has been continued
-Afib was diagnosed during preop for lumbar spine surgery completed 09/28/2024 at [facility].
-Patient has received a 2.4 gram amiodarone loaded as of 10/31/24 AM. Cont amiodarone 200 mg TID while inpatient and then at d/c transition to amiodarone 200 mg BID for 2 weeks followed by 200 mg daily.
-QTc 481 ms in SR by ECG 10/31/24 as reviewed by me.
-Patient with acute HF on admission. Recheck pro-BNP and CXR 11/01/24 AM.
-Remains on 2 L NC.
-Weight down at least 5 lbs depending on accuracy of admission weight. Lasix increased to 40 mg IV BID 10/29/24, patient was not taking a diuretic prior to admission.
-EF 45% in Afib during OMAR 10/30/24 and was a bit better at 50-55% by TTE 10/28/24.
-Outpatient dose of Toprol XL 25 mg daily as needed has been changed to a daily standing dose
-Patient is not on JUAN/ARB/ARNI due to hypotension
-Will add Farxiga 10 mg daily. Will ask CM to check on cost
-By OMAR 10/30/2024 there were 2 jets of moderate to severe MR, no MVP and the mean transmitral gradient was 2 mmHg. Will continue to follow mitral valve disease and consider mitral valve intervention pending improvement with rhythm control
-Patient was being considered for rehab at [facility] and this would be her preference. The CM indicates that the plan is rehab at [facility] vs home with VN.
-Of note, patient's tells me they are planning to move to [place], [place] to be closer to their son. This has been pushed back already. We discussed likely benefit of staying here until patient's current medical issues are addressed
and they are in full agreement with this. they were planning to follow with Dr. Feliciano Ferguson, scheduled 11/24/24
Progress Note - Fancy Sewer
Subjective
Date of Service: October 31, 2024
She does not feel any different following OMAR/CV yesterday
Objective
Labs:
10/27/24 04:43
10/31/24 03:27
Labs
Hgb 12.1 g/dL (12.0-16.0) 10/27/24 04:43
Hct 36.6 % (37.0-47.0) L 10/27/24 04:43
Plt Count 303 10^3/uL (130-400) 10/27/24 04:43
Sodium 136 mmol/L (135-145) 10/31/24 03:27
Potassium 4.0 mmol/L (3.5-5.1) 10/31/24 03:27
BUN 28 mg/dl (7-17) H 10/31/24 03:27
Creatinine 0.6 mg/dL (0.6-1.0) 10/31/24 03:27
Glucose 84 mg/dl (70-99) 10/31/24 03:27
Vital Signs and I&O:
Vital Signs
Temp Pulse Resp BP Pulse Ox
98.1 F 87 18 120/62 94
10/31/24 07:04 10/31/24 08:00 10/31/24 07:04 10/31/24 07:03 10/31/24 07:04
Vital Signs
Temp Pulse Resp BP Pulse Ox
98.1 F 87 18 120/62 94
10/31/24 07:04 10/31/24 08:00 10/31/24 07:04 10/31/24 07:03 10/31/24 07:04
Intake & Output
12/1210/30/24 10/31/24 11/01/24
06:59 06:59 06:59 06:59
Intake Total 480 / 480 880 / 880 240 / 240
Output Total 1550 / 1550 800 / 800
Balance -1070 / -1070 80 / 80 240 / 240
Physical Exam
Physical Exam
GEN: AAO x3. Frail appearing.
HEENT: MMM
LUNGS: 2 L NC. No audible wheeze.
CV: SR on tele
ABD: ND
EXT: No edema B/L
NEURO: Gross non-focal
SKIN: No rash
[2024-10-31] MEDS: SENOKOT-S 1 TABLET PO ×2 (09:29→20:12)
[2024-10-31] MEDS: RESTASIS 0.05% OPHTHALMIC EMULSION 1 DROPS OPHTH ×2 (10:36→21:20)
[2024-10-31] MEDS: SINEMET CR 25-100 (EXTENDED RELEASE) 1 TABLET PO (22:19)
[2024-10-31] MEDS: MELATONIN 10 MG PO (22:20)
--- NOTE | 2024-10-31 23:40 | PTCARENOTE ---
Rec'd pt at change of shift. PT AAO*3, VSS, and NSR on TELE monitor. Pt agreed to ambulate only with staff assistance. Pt on bed alarm as precaution, due too unsteady gain and use of walker. Pt complained of pain in lowering extremities and
given NORCO as ordered. Pt currently resting with call cam in reach. Plan of care ongoing.
[2024-11-01] VITALS (8 sets, daily range): BP systolic 96–130; BP diastolic 48–68; BMI 18.4
[2024-11-01] MEDS: SINEMET 25-100 1 TABLET PO ×5 (05:47→21:40)
[2024-11-01 06:21] LABS: NT-proBNP 961 pg/ml
[2024-11-01 06:28] LABS: Blood Urea Nitrogen 30 mg/dl (7-17); Carbon Dioxide 37 mmol/L (22-30); Chloride 89 mmol/L (98-107); Estimated Creatinine Clearance 59 ml/min; Glucose 107 mg/dl (70-99); Potassium 3.7 mmol/L (3.5-5.1); Sodium 135 mmol/L (135-145); eGFR > 60.00
--- NOTE | 2024-11-01 08:45 | W.PN.HOSP.TC ---
Today's Communication/Plan
-
see A/P
Assessment / Plan
Assessment / Plan
HPI: 74-year-old female with past medical history of Parkinson's disease, A-fib and spinal stenosis status post recent spine surgery; who presented to the emergency department with shortness of breath and tachycardia, symptoms began after discharge
from rehab.
She reported that she has had swelling of her lower extremities bilaterally at rehab.
She was wheezing and spouse noted increased work of breathing. She had some chest tightness. He started noticing that she had severe dyspnea when laying down and was propping her up. He was monitoring heart rate in order to give her on metoprolol
for atrial fibrillation and noticed that her heart rate was in the 150s. Symptoms became very severe so she decided to bring her to the emergency department.
Patient reported that over 3 weeks ago she had preoperative evaluation for a spinal surgery. At that time she was found to have asymptomatic atrial fibrillation on EKG and was started on metoprolol and apixaban. She had an echocardiogram which
showed moderate to severe mitral regurg. She was pending follow-up with cardiology.
A/P:
# Atrial flutter with RVR
Diltiazem gtt -> Amiodarone 200 mg TID
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
anticoagulation with apixaban
s/p OMAR and successful CV 10/30
body work auto trimmer on board
# New acute onset diastolic heart failure, suspect 2/2 aflutter/fib RVR.
# Mitral regurgitation, Moderate to severe
rate control as below
cont IV Lasix 40 mg BID, follow daily weights and i/os
Echo: EF 50 to 55%. Diastolic function indeterminate. Moderate to severe mitral regurgitation. Estimated pulmonary artery systolic pressure 58 mmHg. Compared to prior echocardiogram September 23, 2024, no significant changes.
Cardiology on board
# Acute hypoxic resp insufficiency 2/2 to above, resolved
weaned from 4L NC to RA, pt is not on home O2
# Constipation
Started Senokot-S, Miralax
1x dose Dulcolax [place]
# spinal stenosis s/p back surgery
pain well controlled. acetaminophen prn
PT OT
# Parkinson
continue sinamet per home med
DVT PPX - on apixaban
Code status - full code
Dispo: [facility] per CM
d/w at [facility]. He is concerned about pt's valvulopathy (Mitral regurgitation, Moderate to severe) and is requesting eval for replacement
DW Card
total time spent 51 min
Anticipated Discharge: 24 - 48 hours
Subjective/Interval History
-
Date of Service: November 01, 2024
Objective Data
-
Labs:
Laboratory Results
11/01/24
05:29
Sodium 135
Potassium 3.7
Chloride 89 L
Carbon Dioxide 37 H
BUN 30 H
Creatinine 0.6
Glucose 107 H
Calcium 9.0
Vital Signs:
Vital Signs
Temp Pulse Resp BP Pulse Ox
36.6 C 80 20 122/56 92
11/01/24 06:55 11/01/24 06:00 11/01/24 06:55 11/01/24 05:19 11/01/24 03:20
I&O
10/31/24 11/01/24 11/02/24
06:59 06:59 06:59
Intake Total 240 / 240 680 / 680
Balance 240 / 240 680 / 680
Review of Systems
-
All other systems: Reviewed and negative
Physical Exam
-
General: Well Developed, Well Nourished, No Apparent Distress, Comfortable, Conversant and Appears Chronically Ill
HEENT: Normocephalic, Atraumatic, Nose Appears Normal and Ears Appear Normal; Negative Oxygen
Respiratory: Non Labored Respirations; Negative Accessory Resp Muscle Use
Cardiac: Regular Rhythm and S1/S2
GI: Soft, Nontender and Nondistended
Musculoskeletal: Edema, Right Lower Extrem (mild) and Edema, Left Lower Extrem (mild)
Skin: Warm and Dry
Neuro: Awake, Alert, Oriented and AO x 3
Psych: Calm and Intact Judgement/Insight
Data Reviewed
-
Medical Tests (Nuc Med, Echo etc): Report Reviewed by me (echo)
Labs: Labs Reviewed by me
[2024-11-01] MEDS: LASIX 40 MG IV ×2 (08:46→16:13)
[2024-11-01] MEDS: MIRALAX 17 GRAMS PO (08:46)
[2024-11-01] MEDS: FLUSH (NSS) 1 FLUSH IV ×3 (08:48→16:16)
[2024-11-01] MEDS: PACERONE 200 MG PO ×2 (08:55→19:48)
[2024-11-01] MEDS: RASAGILINE MESYLATE 1 MG PO (08:55)
[2024-11-01] MEDS: TOPROL XL 25 MG PO (08:55)
[2024-11-01] MEDS: FARXIGA 10 MG PO (08:55)
[2024-11-01] MEDS: MUCINEX 600 MG PO ×2 (08:55→19:47)
[2024-11-01] MEDS: THERAGRAN 1 TABLET PO (08:55)
[2024-11-01] MEDS: RESTASIS 0.05% OPHTHALMIC EMULSION 1 DROPS OPHTH ×2 (08:56→21:40)
[2024-11-01] MEDS: SENOKOT-S 1 TABLET PO ×2 (08:56→19:48)
[2024-11-01] MEDS: ELIQUIS 5 MG PO ×2 (08:56→19:47)
--- NOTE | 2024-11-01 11:04 | PTCARENOTE ---
received patient this am in bed. patient got up when I was ready to give am pills. patient able to get OOB with assist of 1 and rolling walker. patient has difficulty taking pills(to grab and put in mouth), medications administered one by one, yudelka.
well. patient is very slow to ambulate with walker but does well. this is all baseline for patient. patient placed in chair , leans toward left, pillow placed to sit her upright, patient stated, 'I always lean toward the left'. monitor shows NSR,
VSS, EKG done as ordered NSR. chest xray completed as ordered. lung haq diminished, taken off o2 sat 94%.patient voids well when ambulating to BR. presently sitting up in chair watching TV.
--- NOTE | 2024-11-01 14:45 | W.PN.CARDCBS ---
Today's Communication / Plan
-
Continue IV diuresis
Decrease amiodarone 400 mg twice daily
PT OT
Incentive spirometer
Impression / Plan
-
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
Assessment:
Presentation with SOB, LE, orthopnea, palpitations
Acute HFpEF, small to mod B/L pleural effusions by CXR 10/26/24, improving
� BNP 900 on repeat assessment; Chest x-ray improving pulmonary edema
Negative troponin
Aflutter with RVR status post OMAR/DCCV now sinus rhythm on amio
Atrial fibrillation, diagnosed 09/2024, status post OMAR/DCCV
Anticoagulation with Eliquis
Moderate to severe mitral regurgitation by echo 09/23/2024
Status post lumbar spine surgery 09/28/2024 at [facility]
Parkinson's disease
ECHO at [facility] 09/23/24: EF 64%, mildly dilated left atrium, moderate to severe MR, mild TR
ECHO 10/28/24: EF 50 to 55%, moderately dilated left and right atria, multiple jets of moderate to severe MR, mild AR, moderate TR, pulmonary hypertension, PASP 58 mmHg, mild [place], pleural effusion
OMAR 10/30/24: EF 45 to 50%, normal RV size with low normal RV systolic function, no MVP, 2 jets of MR graded moderate to severe with peak E velocity 1.04M/S and mean transmitral gradient 2 mmHg, aortic sclerosis without stenosis, no significant
pericardial effusion
Plan:
-Remains in SR following OMAR/CV 10/30/24. Patient did not notice any symptomatic change and reports she was asymptomatic with Afib prior to CV as well.
-Outpatient dose of Eliquis 5 mg BID (age 74, Cre 0.6, wt 47.1 kg) has been continued
-Afib was diagnosed during preop for lumbar spine surgery completed 09/28/2024 at [facility].
-Patient has received a 2.4 gram amiodarone loaded as of 10/31/24 AM. Cont amiodarone 200 mg TID while inpatient; will decrease to Amio 200 mg twice daily with plan to continue for 2 weeks then reduce to 200 mg daily
-QTc 481 ms in SR by ECG 10/31/24 as reviewed by me.
-Patient with acute HF on admission. Recheck pro-BNP and CXR 11/01/24 AM.
-Remains on 2 L NC.
-Weight down at least 5 lbs depending on accuracy of admission weight. Lasix increased to 40 mg IV BID 10/29/24, patient was not taking a diuretic prior to admission.
-EF 45% in Afib during OMAR 10/30/24 and was a bit better at 50-55% by TTE 10/28/24.
-Outpatient dose of Toprol XL 25 mg daily as needed has been changed to a daily standing dose
-Patient is not on JUAN/ARB/ARNI due to hypotension
-Will add Farxiga 10 mg daily. Will ask CM to check on cost
-By OMAR 10/30/2024 there were 2 jets of moderate to severe MR, no MVP and the mean transmitral gradient was 2 mmHg. Will continue to follow mitral valve disease and consider mitral valve intervention pending improvement with rhythm control
-Patient was being considered for rehab at [facility] and this would be her preference. The CM indicates that the plan is rehab at [facility] vs home with VN.
-Of note, patient's tells me they are planning to move to [place], [place] to be closer to their son. This has been pushed back already. We discussed likely benefit of staying here until patient's current medical issues are addressed
and they are in full agreement with this. they were planning to follow with Dr. Feliciano Ferguson, scheduled 11/24/24
Progress Note - Fire Marshal
Subjective
Date of Service: November 01, 2024
Patient seen and examined. No acute events overnight. Patient paul in sinus rhythm on telemetry monitoring. Patient continues to note mild shortness of breath. No chest pain, lightheadedness, dizziness, or syncope.
Objective
Labs:
10/27/24 04:43
11/01/24 05:29
Labs
Hgb 12.1 g/dL (12.0-16.0) 10/27/24 04:43
Hct 36.6 % (37.0-47.0) L 10/27/24 04:43
Plt Count 303 10^3/uL (130-400) 10/27/24 04:43
Sodium 135 mmol/L (135-145) 11/01/24 05:29
Potassium 3.7 mmol/L (3.5-5.1) 11/01/24 05:29
BUN 30 mg/dl (7-17) H 11/01/24 05:29
Creatinine 0.6 mg/dL (0.6-1.0) 11/01/24 05:29
Glucose 107 mg/dl (70-99) H 11/01/24 05:29
Vital Signs and I&O:
Vital Signs
Temp Pulse Resp BP Pulse Ox
97.8 F 77 16 102/68 95
11/01/24 11:56 11/01/24 12:00 11/01/24 11:56 11/01/24 11:59 11/01/24 11:56
Vital Signs
Temp Pulse Resp BP Pulse Ox
97.8 F 77 16 102/68 95
11/01/24 11:56 11/01/24 12:00 11/01/24 11:56 11/01/24 11:59 11/01/24 11:56
Intake & Output
10/30/24 10/31/24 11/01/24 11/02/24
06:59 06:59 06:59 06:59
Intake Total 880 / 880 240 / 240 680 / 680
Output Total 800 / 800
Balance 80 / 80 240 / 240 680 / 680
Physical Exam
Physical Exam
GEN: AAO x3. Frail appearing.
HEENT: MMM
LUNGS: 2 L NC. No audible wheeze, mild bibasilar crackles, poor inspiratory effort.
CV: SR on tele
ABD: ND
EXT: No edema B/L
NEURO: Gross non-focal
SKIN: No rash
[2024-11-01] MEDS: MELATONIN 10 MG PO (23:16)
[2024-11-01] MEDS: SINEMET CR 25-100 (EXTENDED RELEASE) 1 TABLET PO (23:16)
[2024-11-02] VITALS (9 sets, daily range): BP systolic 99–128; BP diastolic 55–76; PULSE 76; O2SAT 93; BMI 17.5
[2024-11-02 04:34] LABS: Blood Urea Nitrogen 28 mg/dl (7-17); Calcium 8.6 mg/dl (8.4-10.2); Carbon Dioxide 37 mmol/L (22-30); Chloride 90 mmol/L (98-107); Estimated Creatinine Clearance 48 ml/min; Glucose 96 mg/dl (70-99); Potassium 3.8 mmol/L (3.5-5.1); Sodium 134 mmol/L (135-145); eGFR > 60.00
--- NOTE | 2024-11-02 06:02 | PTCARENOTE ---
Rec'd pt at change of shift. Pt AAO*3, VSS, pleasant, and in NSR on TELE monitor. Pt denies any pain or discomfort and verbalizes safety and comfort. Pt on bed alarm on as precaution and ambulating with staff assistance and rolling walker. Pt
resting with call cam in reach. Plan of care ongoing.
[2024-11-02] MEDS: SINEMET 25-100 1 TABLET PO ×5 (07:24→21:10)
--- NOTE | 2024-11-02 07:40 | W.PN.HOSP.TC ---
Today's Communication/Plan
-
IV Lasix today, anticipate transition to PO Lasix tomorrow
Assessment / Plan
Assessment / Plan
Physical Exam
General: Not in acute distress
HEENT: Normocephalic, Atraumatic
Respiratory: Mild bibasilar crackles
Cardiac: Regular Rhythm and S1/S2
GI: Soft, Nontender and Nondistended. Positive bowel sounds
Musculoskeletal: Edema, Right Lower Extrem (mild) and Edema, Left Lower Extrem (mild)
Skin: Warm and Dry
Neuro: Awake, Alert, Oriented and AO x 3
Psych: Calm and Intact Judgement/Insight
Assessment/Plan
HPI: 74-year-old female with past medical history of Parkinson's disease, A-fib and spinal stenosis status post recent spine surgery; who presented to the emergency department with shortness of breath and tachycardia, symptoms began after discharge
from rehab.
She reported that she has had swelling of her lower extremities bilaterally at rehab.
She was wheezing and spouse noted increased work of breathing. She had some chest tightness. He started noticing that she had severe dyspnea when laying down and was propping her up. He was monitoring heart rate in order to give her on metoprolol
for atrial fibrillation and noticed that her heart rate was in the 150s. Symptoms became very severe so she decided to bring her to the emergency department.
Patient reported that over 3 weeks ago she had preoperative evaluation for a spinal surgery. At that time she was found to have asymptomatic atrial fibrillation on EKG and was started on metoprolol and apixaban. She had an echocardiogram which
showed moderate to severe mitral regurg. She was pending follow-up with cardiology.
# Atrial fibrillation, diagnosed 09/2024, status post OMAR/DCCV on 10/30/24
# Aflutter with RVR status post OMAR/DCCV now sinus rhythm on amio
Diltiazem gtt -> Amiodarone 200 mg TID initially --> now on Amiodarone 200 mg twice daily with plan to continue for 2 weeks then reduce to 200 mg daily
Cont HEAD NECK SURGEON Toprol 25 mg daily (was on prn outpatient, now standing dose)
Continue Apixaban 5 mg PO BID
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
# Acute HFpEF
# New acute onset diastolic heart failure, suspect 2/2 aflutter/fib RVR.
# Mitral regurgitation, Moderate to severe
Recheck of pro-BNP improved significantly and CXR 11/01/24 AM with improved pulmonary edema
Continue IV Lasix 40 mg BID, follow daily weights and i/os (patient not on diuretic prior to admission)
Echo: EF 50 to 55%. Diastolic function indeterminate. Moderate to severe mitral regurgitation. Estimated pulmonary artery systolic pressure 58 mmHg. Compared to prior echocardiogram September 23, 2024, no significant changes.
Cardiology on board
Farxiga
No JUAN/ARB/ARNI due to hypotension
Outpatient follow-up with Dr. Feliciano Ferguson, scheduled 11/24/24
# Acute hypoxic resp insufficiency 2/2 to above, resolved
-Weaned from 4L NC to RA, pt is not on home O2
# Constipation
-Patient reported finally had a bowel movement on 11/01/24
-Continue Senokot-S, Miralax which was recently started
-1x dose Dulcolax ID
# spinal stenosis s/p back surgery
pain well controlled. acetaminophen prn
PT OT
# Status post lumbar spine surgery 09/28/2024 at [facility]
# Parkinson
-Continue Sinemet per home med
DVT Prophylaxis: Apixaban
Code Status: Full Code
Disposition: [facility] per
Patient's was at bedside and I discussed patient's case in the presence of the patient, today.
Anticipated Discharge: Within 24 hours
Subjective/Interval History
-
Date of Service: November 02, 2024
Patient was seen and examined. She denied any new chest pain, she has some shortness of breath but it is overall improved from prior. She had a bowel movement yesterday.
Objective Data
-
Labs:
Laboratory Results
11/02/24
03:28
Sodium 134 L
Potassium 3.8
Chloride 90 L
Carbon Dioxide 37 H
BUN 28 H
Creatinine 0.7
Glucose 96
Calcium 8.6
Vital Signs:
Vital Signs
Temp Pulse Resp BP Pulse Ox
98 F 85 18 122/64 98
11/02/24 03:22 11/02/24 03:22 11/02/24 03:22 11/02/24 03:22 11/02/24 03:22
I&O
11/01/24 11/02/24 11/03/24
06:59 06:59 06:59
Intake Total 680 / 680 960 / 960
Output Total 1390 / 1390
Balance 680 / 680 -430 / -430
[2024-11-02] MEDS: LASIX 40 MG IV ×2 (08:44→15:41)
[2024-11-02] MEDS: FLUSH (NSS) 1 FLUSH IV ×2 (08:45→15:43)
[2024-11-02] MEDS: PACERONE 200 MG PO ×2 (08:45→19:31)
[2024-11-02] MEDS: FARXIGA 10 MG PO (08:45)
[2024-11-02] MEDS: TOPROL XL 25 MG PO (08:46)
[2024-11-02] MEDS: SENOKOT-S 1 TABLET PO ×2 (08:46→19:31)
[2024-11-02] MEDS: THERAGRAN 1 TABLET PO (08:46)
[2024-11-02] MEDS: ELIQUIS 5 MG PO ×2 (08:46→19:31)
[2024-11-02] MEDS: RASAGILINE MESYLATE 1 MG PO (08:46)
[2024-11-02] MEDS: MUCINEX 600 MG PO ×2 (08:47→19:31)
[2024-11-02] MEDS: MIRALAX PO (08:47)
[2024-11-02] MEDS: RESTASIS 0.05% OPHTHALMIC EMULSION 1 DROPS OPHTH ×2 (08:50→21:10)
--- NOTE | 2024-11-02 10:16 | CM ---
Reviewed chart. Met with and Mrs. [facility] to review discharge plans. Reviewed the option of [facility], at [place] and if well enough to go directly home with spouse and Gilbert LEDEZMA. Will need to see her current physical therapy evaluation to
see if she still meets criteria for [facility]. Spouse is agreeable to [facility]. at [facility] If approved for admission. Telephone call to [facility]= Rx to check co-pay for Farxiga 10 mg and Jardiance 10 mg po daily. She is in the coverage gap.
Her co-pay for Farxiga is $146.40 a month and Jardiance is $153.73 a month. She can use the one month free coupon. Placed the one month free coupon in her red discharge folder. Medial work-up in progress. The discharge plan is to go to [facility].
at [place] if indicated when medically stable.
--- NOTE | 2024-11-02 10:58 | PTCARENOTE ---
received patient sitting up in chair eating breakfast. am meds given and able to swallow one pill at a time. monitor shows NSR, VSS. PT working with patient to see if she will be going to a rehab facility.
--- NOTE | 2024-11-02 13:46 | W.PN.CARDCBS ---
Addendum entered and electronically signed by Shanti Ferguson MD 11/02/24 16:22:
I saw and examined the patient.
The Ordnance Technician's note was reviewed and I agree with the note.
Comment: Patient examined and still mildly volume overloaded with some mild lower extremity edema and also crackles at the bases.
Continue IV Lasix today and tomorrow morning and likely will be able to be switched to oral Lasix tomorrow and proceed to rehab.
Continue to monitor input/output/daily weights.
Moderate to severe mitral regurgitation to be followed.
Continue antiarrhythmic drug therapy for atrial fibrillation status post recent OMAR cardioversion.
Original Note:
Today's Communication / Plan
-
Cont Lasix 40 mg IV BID through tonight and then PO thereafter
Impression / Plan
-
Primary Regulator Mechanic: scheduled to see Dr. Wiggins as new patient 11/24/24
Assessment:
Presentation with SOB, LE, orthopnea, palpitations
Acute HFpEF, small to mod B/L pleural effusions by CXR 10/26/24, improving
� BNP 900 on repeat assessment; Chest x-ray improving pulmonary edema
Negative troponin
Aflutter with RVR status post OMAR/DCCV now sinus rhythm on amio
Atrial fibrillation, diagnosed 09/2024, status post OMAR/DCCV
Anticoagulation with Eliquis
Moderate to severe mitral regurgitation by echo 09/23/2024
Status post lumbar spine surgery 09/28/2024 at [facility]
Parkinson's disease
ECHO at [facility] 09/23/24: EF 64%, mildly dilated left atrium, moderate to severe MR, mild TR
ECHO 10/28/24: EF 50 to 55%, moderately dilated left and right atria, multiple jets of moderate to severe MR, mild AR, moderate TR, pulmonary hypertension, PASP 58 mmHg, mild WI, pleural effusion
OMAR 10/30/24: EF 45 to 50%, normal RV size with low normal RV systolic function, no MVP, 2 jets of MR graded moderate to severe with peak E velocity 1.04M/S and mean transmitral gradient 2 mmHg, aortic sclerosis without stenosis, no significant
pericardial effusion
Plan:
-Continues with rales so will continue with Lasix 40 mg IV BID through 11/02/24 PM and then switch to POs in the AM
-Patient thinks her dry weight is closer to 96 lbs and currently weighs 98 lbs on 11/02/24. Weight is down at least 5 lbs this admission
-EF 45% in Afib during OMAR 10/30/24 and was a bit better at 50-55% by TTE 10/28/24.
-Outpatient dose of Toprol XL 25 mg daily as needed has been changed to a daily standing dose
-Patient is not on JUAN/ARB/ARNI due to hypotension
-Added Farxiga 10 mg daily and patient is in the donut hole, but can use the 1 month free prescription card and then her new prescription plan year will start in November.
-By OMAR 10/30/2024 there were 2 jets of moderate to severe MR, no MVP and the mean transmitral gradient was 2 mmHg. Will continue to follow mitral valve disease and consider mitral valve intervention pending improvement with rhythm control
-Remains in SR following OMAR/CV 10/30/24. Patient did not notice any symptomatic change and reports she was asymptomatic with Afib prior to CV as well.
-Outpatient dose of Eliquis 5 mg BID (age 74, Cre 0.6, wt 47.1 kg) has been continued
-Afib was diagnosed during preop for lumbar spine surgery completed 09/28/2024 at [facility].
-New to amiodarone this admission and has received a 3 gm load as of 11/02/24. Patient currently ordered amiodarone 200 mg twice daily and should continue this for 2 more weeks at time of discharge and then decrease to 200 mg daily thereafter.
-QTc 500 MS by ECG reviewed by me 11/02/2024. Continue amiodarone as is
-Patient was being considered for rehab at [place] and this would be her preference. Patient must be off of IV diuretics for 24 hours prior to discharge.
-Of note, patient's tells me they are planning to move to [place], [place] to be closer to their son. This has been pushed back already. We discussed likely benefit of staying here until patient's current medical issues are addressed
and they are in full agreement with this. they were planning to follow with Dr. Feliciano Ferguson, scheduled 11/24/24
Progress Note - Regulator Mechanic
Subjective
Date of Service: November 02, 2024
She thinks LE edema is unchanged, but is less SOB
Objective
Labs:
10/27/24 04:43
11/02/24 03:28
Labs
Hgb 12.1 g/dL (12.0-16.0) 10/27/24 04:43
Hct 36.6 % (37.0-47.0) L 10/27/24 04:43
Plt Count 303 10^3/uL (130-400) 10/27/24 04:43
Sodium 134 mmol/L (135-145) L 11/02/24 03:28
Potassium 3.8 mmol/L (3.5-5.1) 11/02/24 03:28
BUN 28 mg/dl (7-17) H 11/02/24 03:28
Creatinine 0.7 mg/dL (0.6-1.0) 11/02/24 03:28
Glucose 96 mg/dl (70-99) 11/02/24 03:28
Vital Signs and I&O:
Vital Signs
Temp Pulse Resp BP Pulse Ox
97.8 F 78 18 107/60 92
11/02/24 11:26 11/02/24 11:00 11/02/24 11:26 11/02/24 10:45 11/02/24 11:26
Vital Signs
Temp Pulse Resp BP Pulse Ox
97.8 F 78 18 107/60 92
11/02/24 11:26 11/02/24 11:00 11/02/24 11:26 11/02/24 10:45 11/02/24 11:26
Intake & Output
10/31/24 11/01/24 11/02/24 11/03/24
06:59 06:59 06:59 06:59
Intake Total 240 / 240 680 / 680 960 / 960 180 / 180
Output Total 1390 / 1390 550 / 550
Balance 240 / 240 680 / 680 -430 / -430 -370 / -370
Physical Exam
Physical Exam
GEN: AAO x3. Frail appearing.
HEENT: MMM
LUNGS: RA. No audible wheeze.
CV: SR on tele
ABD: ND
EXT: Trace B/L
NEURO: Gross non-focal
SKIN: No rash
[2024-11-02] MEDS: MELATONIN 10 MG PO (22:44)
[2024-11-02] MEDS: SINEMET CR 25-100 (EXTENDED RELEASE) 1 TABLET PO (22:44)
--- NOTE | 2024-11-02 23:00 | PTCARENOTE ---
Pt rec'd at change of shift in recliner chair. Assisted to bathroom twice using walker. Pt's gait slow but steady. Crackles noted in left base. rare dry cough noted.
Lower spine inc solar tech -healing. coccyx appears red, no skin breakdown. Foam drsg applied and pt repositioned in bed with pillows q 2 hrs.
Sinus on telemetry. call cam within reach
[2024-11-03 04:01] VITALS: BP 119/61
[2024-11-03 04:20] VITALS: BMI 17.3
--- NOTE | 2024-11-03 04:37 | PTCARENOTE ---
Pt heard calling out from her bed confused to her surroundings looking for her . easily reoriented
VS taken. assisted to bathroom to void. Wt completed and documented. vs stable,afebrile. Sinus on telemetry. back to bed at present with call cam within reach.
[2024-11-03] MEDS: SINEMET 25-100 1 TABLET PO ×3 (05:50→12:51)
[2024-11-03 07:37] VITALS: BP 95/41
[2024-11-03] MEDS: ELIQUIS 5 MG PO (07:57)
[2024-11-03] MEDS: MUCINEX 600 MG PO (07:57)
[2024-11-03] MEDS: LASIX 40 MG PO (07:57)
[2024-11-03] MEDS: RASAGILINE MESYLATE 1 MG PO (07:57)
[2024-11-03] MEDS: MIRALAX 17 GRAMS PO (07:58)
[2024-11-03] MEDS: FARXIGA 10 MG PO (07:58)
[2024-11-03] MEDS: THERAGRAN 1 TABLET PO (07:58)
[2024-11-03] MEDS: TOPROL XL 25 MG PO (07:58)
[2024-11-03] MEDS: SENOKOT-S 1 TABLET PO (07:58)
[2024-11-03] MEDS: PACERONE 200 MG PO (07:58)
[2024-11-03] MEDS: LASIX IV ×2 (07:59→10:34)
[2024-11-03 08:01] VITALS: BP 97/49
--- NOTE | 2024-11-03 08:45 | W.PN.HOSP.TC ---
Today's Communication/Plan
-
Discharge to [facility] today
Assessment / Plan
Assessment / Plan
Physical Exam
General: Not in acute distress
HEENT: Normocephalic, Atraumatic
Respiratory: Mild bibasilar crackles
Cardiac: Regular Rhythm and S1/S2
GI: Soft, Nontender and Nondistended. Positive bowel sounds
Musculoskeletal: Edema, Right Lower Extrem (mild) and Edema, Left Lower Extrem (mild)
Skin: Warm and Dry
Neuro: Awake, Alert, Oriented and AO x 3
Psych: Calm and Intact Judgement/Insight
Assessment/Plan
HPI: 74-year-old female with past medical history of Parkinson's disease, A-fib and spinal stenosis status post recent spine surgery; who presented to the emergency department with shortness of breath and tachycardia, symptoms began after discharge
from rehab.
She reported that she has had swelling of her lower extremities bilaterally at rehab.
She was wheezing and spouse noted increased work of breathing. She had some chest tightness. He started noticing that she had severe dyspnea when laying down and was propping her up. He was monitoring heart rate in order to give her on metoprolol
for atrial fibrillation and noticed that her heart rate was in the 150s. Symptoms became very severe so she decided to bring her to the emergency department.
Patient reported that over 3 weeks ago she had preoperative evaluation for a spinal surgery. At that time she was found to have asymptomatic atrial fibrillation on EKG and was started on metoprolol and apixaban. She had an echocardiogram which
showed moderate to severe mitral regurg. She was pending follow-up with cardiology.
# Atrial fibrillation, diagnosed 09/2024, status post OMAR/DCCV on 10/30/24
# Aflutter with RVR status post OMAR/DCCV now sinus rhythm on amio
Diltiazem gtt -> Amiodarone 200 mg TID initially --> now continue Amiodarone 200 mg twice daily through 11/17/2024 with plan to continue for 2 weeks then reduce to 200 mg daily starting 11/18/2024
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
Continue Apixaban 5 mg PO BID
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
# Acute HFpEF
# New acute onset diastolic heart failure
# Mitral regurgitation, Moderate to severe
Recheck of pro-BNP improved significantly and CXR 11/01/24 AM with improved pulmonary edema
Completed IV Lasix 40 mg BID on 11/03/24, now on PO Lasix 40 mg PO BID
Follow daily weights and i/os (patient not on diuretic prior to admission)
Echo: EF 50 to 55%. Diastolic function indeterminate. Moderate to severe mitral regurgitation. Estimated pulmonary artery systolic pressure 58 mmHg. Compared to prior echocardiogram September 23, 2024, no significant changes.
Cardiology on board
Farxiga 10 mg daily
No JUAN/ARB/ARNI due to hypotension
Outpatient follow-up with Dr. Feliciano Ferguson, scheduled 11/24/24
# Acute hypoxic resp insufficiency 2/2 to above, resolved
-Weaned from 4L NC to RA, pt is not on home O2
# Constipation
-Patient reported finally had a bowel movement on 11/01/24
-Continue Senokot-S, Miralax which was recently started
-1x dose Dulcolax PA
# spinal stenosis s/p back surgery
pain well controlled. acetaminophen prn
PT OT
# Status post lumbar spine surgery 09/28/2024 at [facility]
# Parkinson
-Continue Sinemet per home med
DVT Prophylaxis: Apixaban
Code Status: Full Code
Disposition: [facility] per CM
More than 30 minutes spent in discharge including
Final examination of the patient
Summarizing hospital stay
Instructions for continuing care to all relevant caregivers
Preparation of discharge records, prescriptions, and referral forms
Total time spent (in minutes): 40
Anticipated Discharge: Today
Subjective/Interval History
-
Date of Service: November 03, 2024
Patient was seen and examined. She denied any new symptoms or complaints.
Objective Data
-
Labs:
Laboratory Results
11/03/24
08:16
Sodium Pending
Potassium Pending
Chloride Pending
Carbon Dioxide Pending
BUN Pending
Creatinine Pending
Glucose Pending
Calcium Pending
Vital Signs:
Vital Signs
Temp Pulse Resp BP Pulse Ox
98.1 F 67 16 119/61 97
11/03/24 07:40 11/03/24 04:01 11/03/24 07:40 11/03/24 04:01 11/03/24 07:40
I&O
11/02/24 11/03/24 11/04/24
06:59 06:59 06:59
Intake Total 960 / 960 280 / 280
Output Total 1390 / 1390 1150 / 1150
Balance -430 / -430 -870 / -870
[2024-11-03 09:00] VITALS: PULSE 72
[2024-11-03] MEDS: RESTASIS 0.05% OPHTHALMIC EMULSION 1 DROPS OPHTH (10:07)
[2024-11-03 10:21] LABS: Blood Urea Nitrogen 27 mg/dl (7-17); Calcium 9.2 mg/dl (8.4-10.2); Chloride 89 mmol/L (98-107); Estimated Creatinine Clearance 48 ml/min; Glucose 94 mg/dl (70-99); Magnesium 2.4 mg/dl (1.6-2.3); Potassium 3.7 mmol/L (3.5-5.1); Sodium 138 mmol/L (135-145); eGFR > 60.00
[2024-11-03] MEDS: LASIX PO (10:33)
[2024-11-03 10:40] LABS: Carbon Dioxide 33 mmol/L (22-30)
--- NOTE | 2024-11-03 10:57 | W.PN.CARDCBS ---
Addendum entered and electronically signed by Drew Soriano DO 11/03/24 12:57:
I saw and examined the patient.
The Insurance Policy Issue Clerk's note was reviewed and I agree with the note.
Comment:
Plan:
Transition to oral Lasix 40 mg twice daily
Continue amiodarone 200 mg twice a day through November 17 then start amiodarone 200 mg once daily
Continue Eliquis
Stable for transfer to rehab
Outpatient follow-up as already scheduled
The patient is moving to [place] early next year.
Discussed with patient's at bedside at length.
Original Note:
Today's Communication / Plan
-
Transition to oral Lasix 40 mg twice daily
Replete potassium
Continue amiodarone 200 mg twice a day through 11/17/2024, starting 11/18/2024 reduce amiodarone to 200 mg once a day
Continue Eliquis
Outpatient cardiology follow-up has been arranged
Impression / Plan
-
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 Wiggins as new patient 11/24/24
Assessment:
Presentation with SOB, LE, orthopnea, palpitations
Acute HFpEF, small to mod B/L pleural effusions by CXR 10/26/24, improving
� BNP 900 on repeat assessment; Chest x-ray improving pulmonary edema
Negative troponin
Aflutter with RVR status post OMAR/DCCV now sinus rhythm on amio
Atrial fibrillation, diagnosed 09/2024, status post OMAR/DCCV
Anticoagulation with Eliquis
Moderate to severe mitral regurgitation by echo 09/23/2024
Status post lumbar spine surgery 09/28/2024 at [facility]
Parkinson's disease
ECHO at [place] 09/23/24: EF 64%, mildly dilated left atrium, moderate to severe MR, mild TR
ECHO 10/28/24: EF 50 to 55%, moderately dilated left and right atria, multiple jets of moderate to severe MR, mild AR, moderate TR, pulmonary hypertension, PASP 58 mmHg, mild [place], pleural effusion
OMAR 10/30/24: EF 45 to 50%, normal RV size with low normal RV systolic function, no MVP, 2 jets of MR graded moderate to severe with peak E velocity 1.04M/S and mean transmitral gradient 2 mmHg, aortic sclerosis without stenosis, no significant
pericardial effusion
Plan:
-Heart failure with preserved EF
-Patient thinks her dry weight is closer to 96 lbs and currently weighs 97 lbs on 11/03/24. Weight is down at least 6 lbs this admission, Transitioned back to oral lasix 40 mg BID
-EF 45% in Afib during OMAR 10/30/24 and was a bit better at 50-55% by TTE 10/28/24.
-Outpatient dose of Toprol XL 25 mg daily as needed has been changed to a daily standing dose
-Patient is not on JUAN/ARB/ARNI due to hypotension
-Added Farxiga 10 mg daily and patient is in the donut hole, but can use the 1 month free prescription card and then her new prescription plan year will start in November.
-Replete potassium, 3.7
-By OMAR 10/30/2024 there were 2 jets of moderate to severe MR, no MVP and the mean transmitral gradient was 2 mmHg. Will continue to follow mitral valve disease and consider mitral valve intervention pending improvement with rhythm control
-Afib was diagnosed during preop for lumbar spine surgery completed 09/28/2024 at [place]. Remains in SR following OMAR/CV 10/30/24.
-Outpatient dose of Eliquis 5 mg BID (age 74, Cre 0.6, wt 47.1 kg) has been continued
-New to amiodarone this admission with load. Continue amiodarone 200 mg twice daily for 2 more weeks at time and then decrease to 200 mg daily starting 11/18/2024.
-QTc 500 MS by ECG reviewed by me 11/02/2024.
-Patient was being considered for rehab at [place] at her request. Hopeful d/c within next 24 hours.
-Of note, patient's reporting they are planning to move to [place], [place] to be closer to their son. This has been pushed back already. We discussed likely benefit of staying here until patient's current medical issues are addressed
and they are in full agreement with this. they were planning to follow with Dr. Feliciano Ferguson, scheduled 11/24/24
Progress Note - Top Edge Beveler
Subjective
Date of Service: November 03, 2024
Objective
Labs:
10/27/24 04:43
11/03/24 09:03
Labs
Hgb 12.1 g/dL (12.0-16.0) 10/27/24 04:43
Hct 36.6 % (37.0-47.0) L 10/27/24 04:43
Plt Count 303 10^3/uL (130-400) 10/27/24 04:43
Sodium 138 mmol/L (135-145) 11/03/24 09:03
Potassium 3.7 mmol/L (3.5-5.1) 11/03/24 09:03
BUN 27 mg/dl (7-17) H 11/03/24 09:03
Creatinine 0.7 mg/dL (0.6-1.0) 11/03/24 09:03
Glucose 94 mg/dl (70-99) 11/03/24 09:03
Vital Signs and I&O:
Vital Signs
Temp Pulse Resp BP Pulse Ox
98.1 F 66 16 97/49 89
11/03/24 07:40 11/03/24 09:00 11/03/24 07:40 11/03/24 08:01 11/03/24 08:01
Vital Signs
Temp Pulse Resp BP Pulse Ox
98.1 F 66 16 97/49 89
11/03/24 07:40 11/03/24 09:00 11/03/24 07:40 11/03/24 08:01 11/03/24 08:01
Intake & Output
11/01/24 11/02/24 11/03/24 11/04/24
06:59 06:59 06:59 06:59
Intake Total 680 / 680 960 / 960 280 / 280
Output Total 1390 / 1390 1150 / 1150 375 / 375
Balance 680 / 680 -430 / -430 -870 / -870 -375 / -375
--- NOTE | 2024-11-03 11:07 | W.HF.CON ---
Heart Failure
- LV Function
Left ventricular function study result: LV Ejection fraction >/= 50%
Ejection Fraction Percentage: 50-55
- ARNI
Patient already on ARNI: No
Heart Failure ARNI Not Indicated: LV Ejection Fraction >/= 40%
- ACEI/ARB
Patient already on ACEI/ARB: No
Heart Failure ACEI/ARB Not Indicated: LV Ejection Fraction > 40%
- Beta Awilda
Patient already on Evidence Based Beta Awilda: Yes
- Mineralocorticord Receptor Antagonist
Patient already on MRA: No
Heart Failure MRA Not Indicated: LV Ejection Fraction > 40%
- SGLT-2 Inhibitor
Patient already on SGLT-2 Inhibitor: Yes
- Afib Anticoagulation
Patient already on Anticoagulation for Afib: Yes
- NYHA CHF Classification
NYHA CHF Classification Level: Class III - Symptoms w/ min exertion, interferes w/ nml daily activity (severe MR)
- ACC/AHA Stage
ACC/AHA Stage: Stage C: Symptomatic Heart Failure
[2024-11-03 11:30] VITALS: BP 124/57
[2024-11-03] MEDS: KCL 40 MEQ PO (11:59)
--- NOTE | 2024-11-03 12:02 | CM ---
Addendum entered by Carmen Brooks 11/03/24 12:29:
Spoke with spouse Luis regarding discharge plans to go to [facility] [place]. He is agreeable with the plan. The discharge plan is to go to [facility], at [facility], when medically stable.
Original Note:
Reviewed chart. Telephone call to [facility]. Liaison to check on bed availability. [facility] states they will have a bed today. Reviewed with attending physician and she is cleared for transfer to [facility]. today. Telephone call to
spouse to update him. Left message. Medical work-up in progress. The discharge plan is to go to [facility]. at [place] when medically stable.
--- NOTE | 2024-11-03 13:53 | PTCARENOTE ---
Report called to [facility]
== END 2024-11-03 14:48 | DRG 308 ==
LOC: IVU 07:26
PROVIDERS: Internal Medicine Cardiovascular Disease; Physician Assistant Medical; ADMITTING PHYSICIAN Internal Medicine; ATTENDING PHYSICIAN Hospitalist; EMERGENCY PHYSICIAN Emergency Medicine; FAMILY PHYSICIAN Student in an Organized Health Care Education/Training Program; OTHER PHYSICIAN Internal Medicine Cardiovascular Disease
PROC: B24BZZ4 Ultrasonography of Heart with Aorta, Transesophageal (ICD-10-PCS; 2024-10-30)
PROC: 5A2204Z Restoration of Cardiac Rhythm, Single (ICD-10-PCS; 2024-10-30)
DX: I48.3 Typical atrial flutter (principal); I50.31 Acute diastolic (congestive) heart failure; Z68.1 Body mass index [BMI] 19.9 or less, adult; E44.0 Moderate protein-calorie malnutrition; G20.A1 Parkinson's disease without dyskinesia, without mention of fluctuations; I34.0 Nonrheumatic mitral (valve) insufficiency; Z79.899 Other long term (current) drug therapy; R09.02 Hypoxemia; R06.89 Other abnormalities of breathing; K59.00 Constipation, unspecified; I48.91 Unspecified atrial fibrillation; M48.00 Spinal stenosis, site unspecified; Z82.49 Family history of ischemic heart disease and other diseases of the circulatory system
CPT/HCPCS: 71045; 71046; 80048; 80053; 82805; 83735; 83880; 84484; 85025; 92960; 93005; 93306; 93312; 93320; 93325; 94640; 96374; 96375; 97110; 97163; 97167; 97530; 97535; 99291

== ENCOUNTER 2024-12-09 10:26 | Day surgery (SDC) | payer MEDICARE, SELFPAY ==
[2024-12-04 11:15] VITALS: BMI 16.7
[2024-12-09] VITALS (10 sets, daily range): BP systolic 104–127; BP diastolic 60–97
--- NOTE | 2024-12-09 11:45 | ITS.CL.ABL ---
Administration Internship - Ablation
Ablation
Procedure Report:
ELECTROPHYSIOLOGIC STUDY AND POSSIBLE ABLATION
DATE: 12/09/24
Primary Care Provider: Dr. Carol Redding
INDICATION:
Symptomatic Atrial Fibrillation.
Paroxysmal
HISTORY: See H and P.
Symptomatic AF, poorly controlled with attempted medical therapy
HAS-BLED: 1
Age
CHADSVASc: 4
CHF, NYHA Class 2, HFpEF
Age
F Gender
PRESENTING RHYTHM: SR
HISTORY: See H and P.
Symptomatic AF, poorly controlled with attempted medical therapy.
ANTIARRHYTHMIC DRUG: amiodarone
ANTICOAGULATION: Apixaban 5 mg twice daily
'TIME-OUT': called and confirmed.
SEDATION/ANESTHESIA: provided via the anesthesia department using general anesthesia.
PROCEDURE:
Ultrasound Guidance with real-time visualization of needle insertion and vessel patency performed by ct for femoral venous Vascular Access. Images were taken and saved for the patient's permanent record. Imaging findings typical femoral venous
anatomy. Direct visualization of needle puncture into the femoral vein was observed and recorded.
A decapolar CS catheter was placed within the CS for mapping and pacing.
The intracardiac ultrasound catheter was positioned in the RA for continuous intracardiac ultrasound imaging.
Heparin bolus and infusion to target ACT at 300 -350 seconds was administered. Transseptal puncture was performed. This entailed advancing a sheath with dilator into the superior vena cava and withdrawing both (monitoring intracardiac ultrasound,
fluoroscopy and tip pressure) with the tip oriented toward the atrial septum. The fossa ovalis was engaged (indicated by sudden displacement of the sheath tip as well as tenting of the fossa seen on intracardiac ultrasound).
[employer] Enchere Limited transseptal system was used. Left atrial catheter position was confirmed by echocardiographic imaging, pressure monitoring (LA mean pressure 12 mm Hg) and fluoroscopy. The sheath was advanced over the dilator and positioned in the left
atrium.
The multipolar mapping catheter was initially positioned through the transseptal sheath for high density mapping.
Geometry and voltage mapping was performed using the Ailvxing net multipolar grid catheter. Ensite-X was utilized for three-dimensional electroanatomical mapping.
A 3-D map was created using Ensite-X in Voxel mode. A 3-D reconstructed CT image was compared to the 3-D Navex map to assist in anatomic evaluation, mapping and ablation.
The [employer] Pulse Select PFA catheter and system was used for cardiac ablation. Catheter positioning was guided and confirmed using both I.C.E. and fluoroscopy.
PV isolation approach was used to electrically isolate each PV ostia (LSPV, LIPV, RSPV, RIPV).
Additional energy applications/additional ablation set was required to accomplish wide area circumferential ablation around each of the pulmonary vein sets and additionally ablation to accomplish LA posterior wall ablation.
Remapping with the Ailvxing net multipolar grid catheter found that all PVPs were eliminated at each vein demonstrating entrance block. Also pacing from the multipolar mapping catheter around the the circumference of the ostia was performed at 10 ma and
2.0 msec output to assess for exit block. This demonstrated electrical isolation at each of the pulmonary vein ostia (LSPV, LIPV, RSPV, RIPV). There is also entrance and exit block at the LA posterior wall.
Programmed electrostimulation failed to induce any sustained arrhythmias.
I.C.E. :
Pre-Ablation Post-Ablation
LVEF: 55% 55%
WMA: None none
Pericardial effusion: None none
COMPLICATIONS:
None
SUMMARY:
- Mapping and ablation to isolate the PVs
- Additional AF ablation set after PVI.
- Mapping and ablation of second tachycardia
- 3-D Electroanatomical Mapping
- Intracardiac Ultrasound
- Ultrasound guidance for vascular access
Post ablation, I discussed today's findings and results with the patient's , Luis.
RECOMMENDATIONS:
- Observe in monitored bed.
- Maintain oral anticoagulation.
- Discontinue amiodarone
- Office visit has been scheduled at my office with Deedee Moran PA-C
Copy to: Dr. Carol Pugh
[2024-12-09] MEDS: TYLENOL 1000 MG PO (12:11)
[2024-12-09 13:35] LABS: ACT-LR - POC 318 Seconds (116-155)
[2024-12-09 13:53] LABS: ACT-LR - POC 281 Seconds (116-155)
[2024-12-09] MEDS: SINEMET 25-100 1 TABLET PO ×2 (14:55→17:41)
--- NOTE | 2024-12-09 17:02 | W.PN.UPDATE ---
Update Note
Progress Note Update
Pt seen post PFA. Right groin with vascade and FOE closure, no ht/bleeding. OOB, urinating without difficulty. Post EKG NSR 70s, no acute changes. Resume eliquis tonight at usual time. Will discontinue amiodarone. Followup at [facility] as scheduled. Home
today if groin site/tele remain stable.
== END 2024-12-09 17:53 | disposition home or self-care (01) ==
LOC: CATH 10:26
PROVIDERS: ATTENDING PHYSICIAN Internal Medicine Cardiovascular Disease; FAMILY PHYSICIAN Student in an Organized Health Care Education/Training Program
DX: I48.91 Unspecified atrial fibrillation (principal); Z79.01 Long term (current) use of anticoagulants; I50.9 Heart failure, unspecified; I48.92 Unspecified atrial flutter; G20.A1 Parkinson's disease without dyskinesia, without mention of fluctuations
CPT/HCPCS: C1732; C1894; C1769; C1892; C1733; C1766; 76937; 85347; 93005; 93655; 93656; 93657; C1760